=== PATIENT | male | born 1950 | race Caucasian/White ===

== ENCOUNTER 2023-02-15 18:53 | Emergency (ER) | payer MEDICARE, OTHER, SELFPAY ==
[2023-02-15 18:54] VITALS: BP 145/73; PULSE 76; RESP 16; TEMP 36.4; O2SAT 96; BMI 26.9
[2023-02-15 20:25] VITALS: RESP 18
[2023-02-15] MEDS: Diphth,Pertuss(Acell),Tet Vac 0.5 ML Vial IM (21:24)
[2023-02-15] MEDS: Lidocaine 1% (20 ml mdv) 20 ML Vial INFILT (21:26)
--- NOTE | 2023-02-15 21:56 | EDS_ITS ---
HPI History of Present Illness Chief Complaint: Laceration Detail of Chief Complaint: Laceration with webspace between the long and ring finger left hand Informant: patient Occured/Mechanism Mechanism/Context: Yes blunt trauma Onset/Context/Timing Onset: Today and Hours Context: Sudden Onset Timing: Continuous Quality of Pain: - (None) Location: Webspace between long and ring finger, left hand Current Severity: Mild Worsened by: Initial injury Relieved by: Pressure to control bleeding Associated Symptoms Associated Symptoms: Negative for Parasthesia, Weakness or Loss of Funtion Narrative Narrative: Patient is a 73-year-old [id number] gentleman who presents with laceration between the left long and ring finger. His tetanus will require update. He denies paresthesia, anesthesia motors. He is on no antithrombotic or anticoagulant. He has no other complaints. Tetanus Immunization: >10 years Prior similar symptoms: Yes Recent Illness/Hospitalization: No [facility] Medical History HTN (hypertension) Hypercholesteremia Allergy/AdvReac Type Severity Reaction Status Date / Time No Known Allergies Allergy Verified 02/15/23 18:54 Social History (Updated 02/15/23 @ 21:[address] Selvin Kaur MD) household members: spouse Smoking Status: Current every day smoker tobacco type: cigarettes ROS ROS ED Integumentary Reports other Details: Laceration described under the HPI narrative ; Denies Abrasions Neurologic Neurologic: Denies paresthesias or weakness Hematologic/Lymphatic Hematologic/Lymphatic: Denies easy bleeding or easy bruising EXAM Physical Exam Const Vital Signs: 02/15/23 18:54 02/15/23 20:25 Temperature 97.6 F L Temperature Source Temporal Pulse Rate 76 Respiratory Rate 16 18 Blood Pressure 145/73 H Blood Pressure Mean 97 Pulse Ox 96 Oxygen Delivery Method Room Air Positive well nourished and well developed General Appearance ED: well developed and NAD HEENT normocephalic and atraumatic Eyes PERRL and EOMs intact bilaterally Resp normal respiratory effort Cardio regular rate and regular rhythm Extremity full ROM; Negative for normal to inspection Extremity Narrative: Median, radial and ulnar function intact. 2 point discrimination normal. Capillary refill is normal. The extensor commonest tendon for the long and ring finger are intact. The flexor digitorum superficialis and flexor digitorum profundus are intact. There is a 2.8 cm laceration webspace between the left long and ring finger. Neuro oriented x3, CN's II-XII intact bilaterally, no focal motor deficits and no sensory deficits noted Sensorium / Orientation: alert Psych mental status grossly normal Skin Skin Narrative: Laceration previously described MDM MDM MDM Narrative Medical decision making narrative: Patient has wound due to metal object requiring repair. Procedures Other Procedures Procedure(s): 2.8 cm laceration webspace between the left long and ring finger. Tetanus was updated. The wound was anesthetized by local infiltration using 1% lidocaine without epinephrine. Wound was irrigated with 150 cc to 200 cc of normal saline. Using 5-0 Ethilon simple interrupted sutures were placed. A total of 7 was placed. Discharge Plan Triage Chief Complaint: Laceration ED Provider: Selvin Kaur Dx/Rx/DC Orders Clinical Impression: Laceration of hand, left Instructions: ED Laceration, Hand: All Closures Primary Care Provider: Ad Mccrary Referrals: Ad Mccrary MD [Primary Care Provider] - 10 Day for suture removal Activity Restrictions/Additional Instructions: 1. Keep wound clean and dry for the next 2 to 3 days 2. Clean wound with peroxide on a Q-tip 3 times a day then apply bacitracin ointment Disposition Disposition: Home, Self Care
[2023-02-15 22:23] VITALS: PULSE 68; RESP 18; O2SAT 98
--- OUTSIDE RECORDS SUMMARY | 2023-02-15 22:23 | XMS RPT_ITS | CCD ---
Author Name Unknown Address [address] [place] [address] Organization [facility] Care Team Providers Care Plush Finisher Name Role Phone DESMOND CASTELLANO Attending CHRISTOS Rothman Referring Unavailable CHRISTOS MCCRARY Primary Care Unavailable DESMOND CASTELLANO Attending CHRISTOS Rothman () Referring Unav ailable Christos Mccrary MD Primary Care Provider Christos Mccrary MD Primary Care Provider Christos Mccrary MD Primary Care Provider CHRISTOS MCCRARY Primary Care Unavailab le NATALIIA, JULIANA Referring Unavailable JULIANA WILLIAM Attending Unavailable CHRISTOS MCCRARY Primary Care Unavailab FAM Moreno Attending Unavailable GRAF JULIANA Referring Unavailable CHRISTOS MCCRARY Primary Care Unavailab ellen WILLIAM, JULIANA Attending Unavailable CHRISTOS MCCRARY Primary Care Unavailab CHRISTOS Orellana Referring Unavailab le CHRISTOS MCCRARY Attending Unavailab le HCRISTOS MCCRARY Primary Care Unavailab CHRISTOS Orellana Primary Care Unavailab BRIONNA Hopkins Referring Unavailable Medications Completed/Discontinued Medications Medication Drug Class(es) Dates Sig (Normalized) Sig (Original) acetaminophen 325 mg oral tablet (11 sources) take 2 tablets by mouth every six hours as needed acetaminophen (TYLENOL) 325 mg tablet Take 650 mg by mouth every 6 hours as needed. 0 Active Problems Active Problems Problem Classification Problem Date Documented Da te Episodic/Chronic Disorders of lipid metabolism (18 sources) Hyperlipidemia; Translations: [Hyperlipidemia, unspecified] Onset: 07-29-2010 07-29-2010 Chronic Essential hypertension (20 sources) Essential hypertension; Translations: [Essential (primary) hypertension] Onset: 10-14-2015 Chronic Genitourinary symptoms and ill-defined conditions (3 sources) Gross hematuria; Translations: [Gross hematuria] Onset: 02-27-2018 Episodic Hemorrhoids (11 sources) Hemorrhoids; Translations: [Unspecified hemorrhoids] 05-13-2005 Episodic Hyperplasia of prostate (3 sources) Benign prostatic hyperplasia with lower urinary tract symptoms; Translations: [Large prostate ] Onset: 02-27-2018 11-23-2022 Chronic Other and unspecified benign neoplasm (13 sources) History of polyp of colon; Translations: [Personal history of colonic polyps] 05-13-2005 Episodic Other and unspecified benign neoplasm (11 sources) Polyp of colon; Translations: [Polyp of colon] 08-22-2017 Episodic Other and unspecified benign neoplasm (1 source) Benign neoplasm of colon, unspecified; Translations: [Benign neoplasm of colon] 09-29-2022 Episodic Other and unspecified benign neoplasm (1 source) Tubular adenoma ; Translations: [Benign neoplasm, unspecified site] 09-29-2022 Episodic Other and unspecified benign neoplasm (1 source) Personal history of colonic polyps; Translations: [History of colonic polyps] Onset: 09-22-2022 Episodic Other diseases of kidney and ureters (1 source) Other obstructive and reflux uropathy; Translations: [Other obstructive and reflux uropathy] Onset: 02-27-2018 Episodic Other inflammatory condition of skin (11 sources) Psoriasis; Translations: [Psoriasis, unspecified] 01-25-2017 Chronic Other inflammatory condition of skin (1 source) Psoriasis, unspecified; Translations: [Psoriasis] Onset: 01-25-2017 Chronic Other screening for suspected conditions (not mental disorders or infectious disease) (6 sources) Patient encounter status; Translations: [Encounter for screening for malignant neoplasm of respiratory organs] Onset: 09-22-2022 Episodic Residual codes; unclassified (5 sources) Family history of cancer of colon; Translations: [Family history of malignant neoplasm of digestive organs] Onset: 09-22-2022 09-02-2022 Episodic Residual codes; unclassified (1 source) Family history of malignant neoplasm of digestive organs; Translations: [Family history of colon cancer] Onset: 09-22-2022 Episodic Spondylosis; intervertebral disc disorders; other back problems (20 sources) Spinal stenosis other than cervical; Translations: [Spinal stenosis, other than cervical] Onset: 10-14-2015 05-13-2005 Episodic Substance-related disorders (13 sources) Tobacco user; Translations: [Nicotine dependence, unspecified, uncomplicated] Onset: 10-14-2015 10-14-2015 Chronic Past or Other Problems Problem Classification Problem Date Documented Date Episodic/Chronic Abdominal hernia (11 sources) Inguinal hernia; Translations: [Unilateral inguinal hernia, without obstruction or gangrene, not specified as recurrent] Onset: 07-15-2009 07-15-2009 Episodic Nonmalignant breast conditions (11 sources) Hypertrophy of breast; Translations: [Hypertrophy of breast] Onset: 04-04-2007 04-04-2007 Episodic Residual codes; unclassified (5 sources) Family history of neoplasm; Translations: [Family history of other specified conditions] Onset: 11-02-2014 11-02-2014 Episodic Residual codes; unclassified (6 sources) FH: Gastrointestinal disease; Translations: [Family history of other specified conditions] Onset: 11-02-2014 11-02-2014 Episodic Results Test Name Value Interpretation Reference Range Facil ity Vital Signs Date Time Vital Sign Value Performing Clinician Yoshi lin 09-29-2022 09:19-0400 Body temperature 98.49 [degF] Julianayari Tracyf PA-C Work Phone: [facility] 09-29-2022 09:19-0400 Body weight 81.92 kg Juliana [place] PA-C Work Phone: [facility] 09-29-2022 09:19-0400 Diastolic blood pressure 78 mm[Hg] Juliana [place] PA-C Work Phone: [facility] 09-29-2022 09:19-0400 Heart rate 72 /min Juliana Nataliia PA-C Work Phone: [facility] 09-29-2022 09:19-0400 SaO2% (BldA) [Mass fraction] 97 % Juliana Nataliia PA-C Work Phone: [facility] 09-29-2022 09:19-0400 Systolic blood pressure 122 mm[Hg] Juliana [place] PA-C Work Phone: [facility] 09-22-2022 09:31-0400 Diastolic blood pressure 69 mm[Hg] Fam Garcia MD Work Phone: [facility] 09-22-2022 09:31-0400 Heart rate 61 /min Fam Garcia MD Work Phone: [facility] 09-22-2022 09:31-0400 Respiratory rate 16 /min Fam Garcia MD Work Phone: [facility] 09-22-2022 09:31-0400 SaO2% (BldA) [Mass fraction] 97 % Fam Garcia MD Work Phone: [facility] 09-22-2022 09:31-0400 Systolic blood pressure 108 mm[Hg] Fma Garcia MD Work Phone: [facility] 09-22-2022 07:42-0400 Body temperature 97.5 [degF] Fam Garcia MD Work Phone: [facility] 09-02-2022 09:21-0400 Body height 175.3 cm Juliana Nataliia PA-C Work Phone: [facility] 09-02-2022 09:21-0400 Body temperature 98.4 [degF] Juliana Nataliia PA-C Work Phone: [facility] 09-02-2022 09:21-0400 Body weight 83.01 kg Juliana Nataliia PA-C Work Phone: [facility] 09-02-2022 09:21-0400 Diastolic blood pressure 80 mm[Hg] Juliana Nataliia PA-C Work Phone: [facility] 09-02-2022 09:21-0400 Heart rate 75 /min Juliana [place] PA-C Work Phone: [facility] 09-02-2022 09:21-0400 SaO2% (BldA) [Mass fraction] 97 % Juliana Nataliia PA-C Work Phone: [facility] 09-02-2022 09:21-0400 Systolic blood pressure 136 mm[Hg] Juliana Nataliia PA-C Work Phone: [facility] 11-26-2021 09:23-0400 Body height 170.8 cm Brionna Podlogar SHEET COMBINING OPERATOR.CARDIAC EXERCISE SPECIALIST Work Phone: [facility] 11-26-2021 09:23-0400 Body weight 78.83 kg Brionna Podlogar SHEET COMBINING OPERATOR.CARDIAC EXERCISE SPECIALIST Work Phone: [facility] 11-26-2021 09:23-0400 Diastolic blood pressure 78 mm[Hg] Brionna Podlogar SHEET COMBINING OPERATOR.CARDIAC EXERCISE SPECIALIST Work Phone: [facility] 11-26-2021 09:23-0400 Heart rate 72 /min Brionna Podlogar SHEET COMBINING OPERATOR.CARDIAC EXERCISE SPECIALIST Work Phone: [facility] 11-26-2021 09:23-0400 Respiratory rate 16 /min Brionna Podlogar SHEET COMBINING OPERATOR.CARDIAC EXERCISE SPECIALIST Work Phone: [facility] 11-26-2021 09:23-0400 SaO2% (BldA) [Mass fraction] 97 % Brionna Podlogar SHEET COMBINING OPERATOR.CARDIAC EXERCISE SPECIALIST Work Phone: [facility] 11-26-2021 09:23-0400 Systolic blood pressure 124 mm[Hg] Brionna Podlogar SHEET COMBINING OPERATOR.CARDIAC EXERCISE SPECIALIST Work Phone: [facility] Encounters Encounter Date Encounter Type Care Provider Facility Start: 11-28-2022 End: 11-28-2022 ambulatory [facility] Facility:[facility] Start: 11-28-2022 End: 11-29-2022 ambulatory [facility] Facility:[facility] Start: 11-23-2022 Telephone encounter Brionna Podl ogar SHEET COMBINING OPERATOR.CARDIAC EXERCISE SPECIALIST Work Phone: [facility] Procedures Date Procedure Procedure Detail Performing Clinician Start: 11-23-2022 Lipid 1996 panel - S hilda or Plasma Fam Garcia MD Work Phone: Start: 09-22-2022 Level iv surg pathol ogy gross&microscopic exam Fam Garcia MD Work Phone: Start: 09-22-2022 Colonoscopy flx dx w/collj spec when pfrmd Juliana Nataliia PA-C Work Phone: Start: 09-22-2022 Colonoscopy Juliana raygoza PA-C Work Phone: Start: 11-23-2021 Lipid 1996 panel - S hilda or Plasma Brionna Porras SHEET COMBINING OPERATOR.CARDIAC EXERCISE SPECIALIST Work Phone: Start: 11-24-2020 Adult depression screening assessment Christos Mccrary MD Work Phone: Start: 08-22-2017 Colonoscopy Ad Mccrary MD Work Phone: Plan of Treatment Date Care Activity Detail Author Start: 11-24-2027 Lipid 1996 panel - S hilda or Plasma Lipid Screening [facility] Start: 09-23-[address] [facility] Start: 09-23-2027 COLORECTAL CANCER SCREENING COLORECTAL CANCER SCREENING [facility] Start: 11-23-2026 Lipid 1996 panel - S hilda or Plasma Lipid Screening [facility] Start: 11-23-2026 LIPID SCREEN LIPID SCREEN [facility] Start: 11-24-2025 LIPID SCREEN LIPID SCREEN [facility] Start: 11-23-2025 Diabetes Screening Diabetes Screenin g [facility] Start: 11-23-2024 DIABETES SCREEN DIABETES SCREEN [facility] Start: 11-23-2024 Diabetes Screening Diabetes Screenin g 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 Start: 11-29-2023 Covid-19 Vaccine ( season) Covid-19 Vacc[address] () [facility] Immunizations Immunization Date Immunization Notes Care Provider Fa cilirandy 06-02-2020 COVID-19 vaccine, fu ll dose (MODERNA) Christos Mccrary MD Work Phone: [facility] 05-05-2020 COVID-19 vaccine, fu ll dose (MODERNA) Christos Mccrary MD Work Phone: [facility] 02-02-2018 influenza virus vaccine, unspecified formulation Brionna Porras SHEET COMBINING OPERATOR.CARDIAC EXERCISE SPECIALIST Work Phone: [facility] 07-22-2016 pneumococcal polysaccharide vaccine, 23 valent Christos Mccrary MD Work Phone: [facility] 10-10-2014 pneumococcal conjuga te vaccine, 13 valent Christos Mccrary MD Work Phone: [facility] 09-13-2013 tetanus toxoid, redu manuel diphtheria toxoid, and acellular pertussis vaccine, adsorbed Christos Mccrary MD Work Phone: [facility] 05-25-2013 zoster vaccine, live Walter marielle Mccrary MD Work Phone: [facility] 03-06-2000 diphtheria and tetan us toxoids, adsorbed for pediatric use Christos Mccrary MD Work Phone: [facility] Work Phone: Payers Date Payer Category Payer Unknown HOSPITAL/MEDICAL GENERIC MEDICAL GENERIC [id number] 2019-Present [phone] [address] [address] [place] [address] Indemnity [id number] 2019 Unknown [id number] 2016 Medicare [id number] 2016 Medicare MEDICARE MEDICAR E A AND B [id number] 2016-Present [phone] [place] [address] Medicare [id number] 2016 Medicare MEDICARE MEDICAR E A AND B [id number] 2016-Present [phone] [place] [address] Medicare [id number] 2006 Unknown [id number] 1950 Unknown [id number] Medicare [id number] Social History Date Type Detail Facility Start: 02-02-2018 End: 11-26-2021 Tobacco smoking status NHIS Smokes tobacco daily [facility] History of tobacco use Cigarette Smoker [facility] Start: 02-02-2018 End: 09-02-2022 Cigarettes smoked current (pack per day) - Reported 1 [facility] Start: 02-02-2018 End: 11-26-2021 Tobacco use and exposure Former smokeless tobacco user [facility] Start: 12-03-2019 End: 09-22-2022 Alcohol intake Current non-drinker of alcohol (finding) [facility] Start: 12-03-2019 History SDOH Alcohol Frequency 1 [facility] Start: 12-03-2019 History SDOH Alcohol Std Drinks 98 [facility] Start: 05-26-2009 History SDOH Alcohol Comment none since 2008 [facility] Start: 12-03-2019 History SDOH Social Connections Phone 3 [facility] Start: 12-03-2019 History SDOH Social Connections Get Together 2 [facility] Start: 12-03-2019 History SDOH Financial 5 [facility] Start: 12-03-[address] [facility] Start: 1950 Sex Assigned At Not on file [facility] Start: 07-19-2021 End: 07-29-2021 Exposure to SARS-CoV-2 (event) Not sure [facility] Work Phone: Start: 12-03-2019 End: 09-02-2022 Social connection and isolation panel [facility] Do you belong to any clubs or organizations such as uatsdin groups, unions, fraternal or athletic groups, or school groups? Yes [facility] Are you now , , , , never or living with a partner? [facility] How often to you hav e a drink containing alcohol? Never [facility] How many standard dr inks containing alcohol do you have on a typical day? Patient refused [facility] Do you feel stress - tense, restless, nervous, or anxious, or unable to sleep at night because your mind is troubled all the time - these days [OSQ] Not at all [facility] The food that (I/we) bought just didn't last, and (I/we) didn't have money to get more. Never true [facility] In the past 12 month s, was there a time when you were not able to pay the mortgage or rent on time? No [facility] Are you now , , , , never or living with a partner? Refused [facility] (I/We) worried wheth er (my/our) food would run out before (I/we) got money to buy more. DK or Refused [facility] Clinical Notes 07-29-2010 to 11-28-2022 Telephone Encounter - Ashli Reddy RN - 11/23/2022 9:06 AM EDTTelephone Encounter - Brionna Porras APRN.CNP - 11/23/2022 9:01 AM EDTPatient Instructions Note Date & Type Note Facility 11-28-2022 Note HNO ID: [id number] Author: Christos Mccrary MD Service: ? Author Type: Physician Type: Progress Notes Filed: 11/28/2022 9:30 PM Note Text: Chief Complaint Patient presents with: Follow Up: Yearly check up HPI Perez Amaro is a 72 year old male who presents here today for Above Complaints. HTN: Mr. Amaro indicates that he is feeling well and denies any symptoms referable to elevated blood pressure. Specifically denies headache, chest pain, palpitations, dyspnea, and peripheral edema. Patient denies any side effects of his medication(s) and is compliant with their regimen. He does check BP's away from this office with average BP's in the 120/80's range. Perez likes to exercise by walking. He watches his diet for sodium, low fat and low cholesterol most of the time. Last 3 Encounter BP Readings: Date: BP: 11/28/2022 122/80 09/29/2022 122/78 09/22/2022 108/69 BPH: Getting up 3-4 times per night and has weak stream. Denies dysuria, hematuria, straining. Refusing rx. Psoriasis: managed by Dr. Watts's office. Has topical cream he uses PRN for flares. Usually has rash on knee. Has to use about once every couple of months. PHQ-2 / Depression screen He in the past two weeks denies having felt down, depressed, hopeless or with little interest or pleasure in doing things. Smoking 3/4 pack per day. Has smoked 50 years at about 1 pack per day. Has used chantix in the past which worked well for him. Has living will and DPOA at home. FULL CODE. Past medical history, appointments, medications, allergies reviewed. Previous Medical History PAST MEDICAL HISTORY Diagnosis Date Arthritis Colon polyps Diverticulosis Enlarged prostate Hyperlipidemia Hypertension Personal history of colonic polyps Colon polyps Psoriasis Dr. Watts Snoring Spinal stenosis, other than cervical Torn rotator cuff left, seeing Dr. Morris Unspecified hemorrhoids without mention of complication Hemorrhoids Previous Surgical History PAST SURGICAL HISTORY Procedure Laterality Date BACK SURGERY HX COLONOSCOPY FLX DX W/COLLJ SPEC WHEN PFRMD 01/30/2002 Colonoscopy COLONOSCOPY FLX DX W/COLLJ SPEC WHEN PFRMD 03/23/2012 normal colonoscopy - prior polyp - 5 years COLONOSCOPY FLX DX W/COLLJ SPEC WHEN PFRMD 08/22/2017 hyperplastic polyps, repeat in 5 years d/t family history COLONOSCOPY FLX DX W/COLLJ SPEC WHEN PFRMD 09/2022 REPEAT 5 YRS HERNIA REPAIR HX PAST SURGICAL HISTORY OF 10/05/2007 right great toe surgery- arthritis PT ED ORTHOPAEDICS Right rotator cuff repair RECONSTRUCTION ROTATOR CUFF AVULSION CHRONIC right RPR 1ST INGUN HRNA AGE 6 YRS/> REDUCIBLE 1975 Hernia repair, inguinal RPR 1ST INGUN HRNA AGE 6 YRS/> REDUCIBLE 08/14/2009 Left Family History FAMILY HISTORY Problem Relation Age of Onset Diabetes Father Hypertension Father Hypertension Mother Lipids Mother Colon Cancer Mother other (anemia) Sister Patient Allergies ALLERGIES No Known Allergies Current Medications Current Outpatient Medications on File Prior to Visit Medication Sig acetaminophen (TYLENOL) 325 mg tablet Take 650 mg by mouth every 6 hours as needed. amLODIPine-benazepril (LOTREL) 5-20 mg per capsule Take 1 capsule by mouth once daily. atorvastatin (LIPITOR) 10 mg tablet Take 1 tablet by mouth once daily. For cholesterol. metoprolol succinate ER (TOPROL XL) 100 mg TAKE 1 TABLET BY MOUTH EVERY DAY multivitamin (VITAMIN DAILY ORAL) Take 1 tablet by mouth once daily. triamcinolone acetonide (KENALOG) 0.1 % cream Apply 1 application to affected area twice daily. Apply sparingly to area for rash/itching. turmeric 400 mg cap Take by mouth. No current facility-administered medications on file prior to visit. Social History Social History Tobacco Use Smoking status: Every Day Packs/day: 1.00 Years: 30.00 Additional pack years: 0.00 Total pack years: 30.00 Types: Cigarettes Smokeless tobacco: Former Vaping Use Vaping Use: Never used Substance Use Topics Alcohol use: No Comment: none since 2008 Drug use: No Review of Symptoms REVIEW OF SYSTEMS GENERAL: No weight loss, malaise or fevers HEENT: Negative for frequent or significant headaches, No changes in hearing or vision, no nose bleeds or other nasal problems NECK: Negative for lumps, goiter, pain and significant neck swelling RESPIRATORY: Negative for cough, hemoptysis, wheezing, COPD, dyspnea or shortness of breath CARDIOVASCULAR: Negative for chest pain, leg swelling, hypertension, CHF or palpitations GI: No nausea, vomiting, or diarrhea : See HPI MUSCULOSKELETAL: Negative for joint pain or swelling, back pain or muscle pain SKIN: Negative for lesions, rash, and itching PSYCH: Negative for sleep disturbance, mood disorder and recent psychosocial stressors HEMATOLOGY/LYMPHOLOGY: Negative for prolonged bleeding, bruising easily or swollen nodes ENDOCR (more content not included)... [facility] 11-23-2022 Miscellaneous Notes Formattin g of this note might be different from the original. Call placed to patient and notified. Patient verbalizes understanding and will be in this morning as he is already fasting. Prefers to walk in rather than schedule appointment. Ashli Reddy RN Order for labs filed. Please let patient know he should fast 8 hours prior. ThanksBrionna APRN.HONEY Patient calls to request his usual labs be placed prior to his yearly physical on Monday11/28/2022. No current orders. Pended what he normally has completed with previous diagnosis. Ashli Reddy RN documented in this encounter [facility] 09-29-2022 Note HNO ID: [id number] Author: Juliana William PA-C Service: ? Author Type: Physician Weatherization Director Type: Progress Notes Filed: 10/10/2022 5:57 AM Note Text: FOLLOW UP VISIT - ENDOSCOPY NAME: Perez Bhatti [facility] [place] NO.: [id number] DATE OF SERVICE: 09/29/2022 : 1950 REFERRING PHYSICIAN: Christos Mccrary MD Perez is a patient I am following for history of colon polyps and family history of colon cancer, and need for surveillance colonoscopy. Dr. Garcia performed lower endoscopy on 09/22/22. Findings per operative report showed: - Two small polyps in the transverse colon and in the ascending colon, removed with a jumbo cold forceps. Resected and retrieved. - Non-bleeding internal hemorrhoids. - Diverticulosis in the sigmoid colon. - The examination was otherwise normal. Pathology demonstrated: FINAL DIAGNOSIS A. Colon, ascending, polyp, biopsy: - Tubular adenoma. B. Colon, transverse, polyp, biopsy: - Sessile serrated polyp with focal mucosal perineurioma-type stromal changes. The patient notes no complaints since the procedure. VITALS: Blood pressure 122/78, pulse 72, temperature 36.9 ?C (98.5 ?F), weight 81.9 kg (180 lb 9.6 oz), SpO2 97 %. General: patient is alert, cooperative, pleasant and in no acute distress On examination, the abdomen is benign. Assessment IMPRESSION: s/p colonoscopy with polypectomy, tubular adenoma and sessile serrated polyp PLAN: The operative findings and pathology report were reviewed with the patient, and the patient has had the opportunity to ask questions and have questions answered. If the patient notes any problems or changes in bowel function, the patient should contact me immediately. Otherwise I recommend follow up endoscopy in 5 years Patient verbalized understanding of all above and agreed with the plan Diagnoses: (D12.6) Sessile serrated polyp of colon (primary encounter diagnosis) (D36.9) Tubular adenoma I spent a total of 23 minutes on the date of the service which included preparing to see the patient, [id number] patient care, completing clinical documentation, obtaining and/or reviewing separately obtained history, counseling and educating the patient/family/caregiver, independently interpreting results (not separately reported), and communicating results to the patient/family/caregiver. Juliana William PA-C [facility] 09-29-2022 Instructions Juliana William PA-C - 09/29/2022 9:37 AM EDT The following instructions are important for you related to your office visit today with the [facility] General Surgeons. INSTRUCTIONS FOLLOWING A POLYP FOUND AT COLONOSCOPY You were found to have a adenomatous and sessile serrated colon polyps. I recommend you undergo repeat endoscopy in 5 years. If you note bleeding, change in bowel habits, or other suspicious colon related symptoms before that time, those symptoms should be evaluated as necessary. If you have any difficulties or concerns, you should contact our office immediately. If you note any additional difficulties, questions, or concerns, you should contact our office immediately @ [phone] and ask to be transferred to the General Surgery department. documented in this encounter [facility] 09-29-2022 History of Presen t illness Narrative FOLLOW UP VISIT - ENDOSCOPY NAME: Perez Bhatti [facility] [place] NO.: [id number] DATE OF SERVICE: 09/29/2022 : 1950 REFERRING PHYSICIAN: Christos Mccrary MD Perez is a patient I am following for history of colon polyps and family history of colon cancer, and need for surveillance colonoscopy. Dr. Garcia performed lower endoscopy on 09/22/22. Findings per operative report showed: - Two small polyps in the transverse colon and in the ascending colon, removed with a jumbo cold forceps. Resected and retrieved. - Non-bleeding internal hemorrhoids. - Diverticulosis in the sigmoid colon. - The examination was otherwise normal. Pathology demonstrated: FINAL DIAGNOSIS A. Colon, ascending, polyp, biopsy: - Tubular adenoma. B. Colon, transverse, polyp, biopsy: - Sessile serrated polyp with focal mucosal perineurioma-type stromal changes. The patient notes no complaints since the procedure. VITALS: Blood pressure 122/78, pulse 72, temperature 36.9 C (98.5 F), weight 81.9 kg (180 lb 9.6 oz), SpO2 97 %. General: patient is alert, cooperative, pleasant and in no acute distress On examination, the abdomen is benign. Assessment IMPRESSION: s/p colonoscopy with polypectomy, tubular adenoma and sessile serrated polyp PLAN: The operative findings and pathology report were reviewed with the patient, and the patient has had the opportunity to ask questions and have questions answered. If the patient notes any problems or changes in bowel function, the patient should contact me immediately. Otherwise I recommend follow up endoscopy in 5 years Patient verbalized understanding of all above and agreed with the plan Diagnoses: (D12.6) Sessile serrated polyp of colon (primary encounter diagnosis) (D36.9) Tubular adenoma I spent a total of 23 minutes on the date of the service which included preparing to see the patient, [id number] patient care, completing clinical documentation, obtaining and/or reviewing separately obtained history, counseling and educating the patient/family/caregiver, independently interpreting results (not separately reported), and communicating results to the patient/family/caregiver. Juliana William PA-C documented in this encounter [facility] 09-22-2022 Nurse Note Patient received in phase II via cart left lateral position, eyes closed but open to verbal stimuli, skin warm and dry, respirations regular and unlabored, abdomen soft and non distended, reports abdomen hurts 'a little', a 2 or 3 on pain scale, encouraged to pass air rectally as able. documented in this encounter [facility] 09-22-2022 History and physical note Images from the original note were not included. HISTORY AND PHYSICAL Perez Amaro 1950 REFERRING PHYSICIAN: No ref. provider found CHIEF COMPLAINT: Consult (colonoscopy) HPI: The patient is a 72 year old male referred for endoscopy. Perez notes no colon complaints. Patient denies any change in bowel habits, weight changes, blood in stools, black tarry stools or abdominal pain. NOTES family history of colon cancer in a first-degree relative. The patient notes no upper GI complaints. Perez has undergone prior endoscopy. Last colonoscopy 08/22/[address] Caro under conscious sedation with removal of benign polyps, 5 year repeat recommended based on family history. Patient denies chest pain, shortness of breath or recent hospitalizations. Denies problems with sedation in the past. PAST MEDICAL HISTORY PAST MEDICAL HISTORY Diagnosis Date Colon polyps Diverticulosis Enlarged prostate Hyperlipidemia Hypertension Personal history of colonic polyps Colon polyps Psoriasis Dr. Watts Snoring Spinal stenosis, other than cervical Torn rotator cuff left, seeing Dr. Morris Unspecified hemorrhoids without mention of complication Hemorrhoids PAST SURGICAL HISTORY PAST SURGICAL HISTORY Procedure Laterality Date COLONOSCOPY FLX DX W/COLLJ SPEC WHEN PFRMD 01/30/2002 Colonoscopy COLONOSCOPY FLX DX W/COLLJ SPEC WHEN PFRMD 03/23/2012 normal colonoscopy - prior polyp - 5 years COLONOSCOPY FLX DX W/COLLJ SPEC WHEN PFRMD 08/22/2017 hyperplastic polyps, repeat in 5 years d/t family history PAST SURGICAL HISTORY OF 10/05/2007 right great toe surgery- arthritis PT ED ORTHOPAEDICS Right rotator cuff repair RECONSTRUCTION ROTATOR CUFF AVULSION CHRONIC right RPR 1ST INGUN HRNA AGE 5 YRS/> REDUCIBLE 1975 Hernia repair, inguinal RPR 1ST INGUN HRNA AGE 5 YRS/> REDUCIBLE 08/14/2009 Left CURRENT MEDICATIONS Current Outpatient Medications Medication Sig amLODIPine-benazepril (LOTREL) 5-20 mg per capsule Take 1 capsule by mouth once daily. atorvastatin (LIPITOR) 10 mg tablet Take 1 tablet by mouth once daily. For cholesterol. metoprolol succinate ER (TOPROL XL) 100 mg TAKE 1 TABLET BY MOUTH EVERY DAY multivitamin (VITAMIN DAILY ORAL) Take 1 tablet by mouth once daily. triamcinolone acetonide (KENALOG) 0.1 % cream Apply 1 application to affected area twice daily. Apply sparingly to area for rash/itching. acetaminophen (TYLENOL) 325 mg tablet Take 650 mg by mouth every 6 hours as needed. No current facility-administered medications for this visit. ALLERGIES: Patient has no known allergies. PERSONAL HISTORY: SOCIAL HISTORY Social History Tobacco Use Smoking status: Every Day Packs/day: 1.00 Years: 30.00 Total pack years: 30.00 Types: Cigarettes Smokeless tobacco: Former Vaping Use Vaping Use: Never used Substance Use Topics Alcohol use: No Comment: none since 2008 Drug use: No FAMILY HISTORY: FAMILY HISTORY FAMILY HISTORY Problem Relation Age of Onset Diabetes Father Hypertension Father Hypertension Mother Lipids Mother Colon Cancer Mother other (anemia) Sister REVIEW OF SYMPTOMS: The review of systems data was entered by the nurse and reviewed by me Nursing Notes: Rosario Ballard LPN 09/02/2022 9:26 AM Signed REVIEW OF SYSTEMS: General: The patient denies fatigue, denies weight loss, denies weight gain, denies feeling hot, and denies feelings of cold. Eyes: The patient denies glaucoma, denies eye injury/surgery, wears glasses or contacts. Ear/Nose/Throat: The patient denies allergies, denies hayfever, denies ear infections, and denies bloody noses. Cardiovascular: The patient denies chest pain, denies heart disease, NOTES high blood pressure,denies cardiac stent, denies prior heart attack, denies irregular heart beat, NOTES high cholesterol, denies poor circulation, denies heart failure, other cardiac issues, denies claudication, denies cold feet, denies peripheral arterial stent. Respiratory: The patient denies tuberculosis, denies pneumonia, denies frequent cough, denies pulmonary embolism, denies shortness of breath, and denies coughing up blood. Gastrointestinal: The patient denies difficulty swallowing, denies acid reflux, denies ulcers, denies vomiting, denies jaundice/hepatitis, denies gallbladder problems, denies black or tarry stools, denies hemorrhoids, denies bleeding from rectum, denies diverticulitis, denies constipation, denies diarrhea, denies loss of stool control, and denies hernias. Kidney/Bladder: The patient denies kidney stones, denies urine infections, and denies bloody urine. Skin: The patient denies a history of skin cancer, denies bleeding/changing moles, and denies a history of skin rash. Neurologic: The patient denies a history of epilepsy/convulsions, denies headaches, denies head/spinal injuries, and denies stroke/TIA. Psychiatric: The patient denies psychiatric medications, denies depression, and denies voices, denies substance abuse. Endocrine: The patient denies thyroid disorders, denies diabetes, and denies hormonal problems. Hematologic: The patient denies a history of bruising, denies bleeding, and denies anemia, denies blood clots. Infections: The patient denies a history of measles and mumps, denies rheumatic fever, and denies sexually transmitted diseases. Musculoskeletal: The patient denies back pain/injury, denies back problems, denies sciatica, denies knee/foot trouble, denies arthritis, or denies gout. When was patient's last Mammogram screening? N/A Last Colonoscopy: 08/2017 Rosario Ballard LPN I have confirmed and edited as necessary, the PFSH and ROS obtained by others. Juliana William PA-C PHYSICAL EXAMINATION: General: The patient is 72 year old male, well nourished, well hydrated in no acute distress. The patient is oriented to time, place, and person. VITALS: Blood pressure 136/80, pulse 75, temperature 36.9 C (98.4 F), height 175.3 cm (5' 9 ), weight 83 kg (183 lb), SpO2 97 %. Body mass index is 27.02 kg/m . HEENT: Normal cephalic, ataumatic, pupils are equally round, sclera are anicteric, mucous membranes are moist, oropharynx is clear. Neck has no masses, asymmetry or lymphadenopathy. Respiratory: Clear to auscultation and percussion. Normal respiratory excursion and pattern. Cardiac: Examination is regular rate and rhythm. Normal S1/S2 Abdominal exam: Soft, nontender, with no palpable masses. No hepatosplenomegaly. No palpable hernias. Extremities: no clubbing, cyanosis or edema. No adenopathy. LABORATORY VALUES: As Noted RADIOLOGIC STUDIES: As Noted Assessment IMPRESSION: encounter for high-risk surveillance colonoscopy-personal history of colon polyps and family history of colon cancer PLAN: I have reviewed my findings with the surgeon. Will plan for lower endoscopy. We discussed the risks and benefits of the planned endoscopy. I have informed the patient that complications can occur including failure to complete the endoscopy and perforation. The patient had the opportunity to ask questions concerning the planned endoscopy. My staff has also explained the procedure to the patient in understandable terms and has given the patient printed material concerning the procedure. The patient freely consents to surgery. I plan to use Miralax bowel preparation I have explained to the patient the difference between IV conscious sedation and MAC anesthesia - and I have offered either, according to the patient's wishes. I have explained that with IV conscious sedation there is no anesthesia provider available and therefore there is a limitation of the amount of IV medications that can be given and that the patient may wake up in the middle of the procedure and/or experience pain/discomfort during the procedure. Further discussion was done and the patient was given the opportunity to ask questions and all questions were answered. The patient chooses IV conscious sedation Diagnoses: (Z12.11) Encounter for screening for malignant neoplasm of colon (primary encounter diagnosis) (Z86.010) History of colonic polyps I spent a total of 33 minutes on the date of the service which included preparing to see the patient, [id number] patient care, completing clinical documentation, obtaining and/or reviewing separately obtained history, performing a medically appropriate examination, counseling and educating the patient/family/caregiver, ordering medications, tests, or procedures, and care coordination (not separately reported). Juliana William PA-C UPDATED HISTORY AND PHYSICAL EXAMINATION SERVICE DATE: 09/22/2022 SERVICE TIME: 8:41 AM PHYSICAL EXAM MUST BE COMPLETED ON ADMISSION The History and Physical (completed in the past 30 days) has been reviewed and the patient has been examined. The contents accurately reflect the patient's condition with the following additions or revisions since the H&P was completed. Examination indicates no changes. This H&P can be found in the attached. SIGNATURE: Fam Garcia III, MD PATIENT NAME: Perez Amaro DATE: September 22, 2022 TIME: 8:41 AM documented in this encounter [facility] 09-02-2022 Note HNO ID: [id number] Author: Juliana William PA-C Service: ? Author Type: Physician Weatherization Director Type: Progress Notes Filed: 09/12/2022 7:58 AM Note Text: HISTORY AND PHYSICAL Perez Amaro 1950 REFERRING PHYSICIAN: No ref. provider found CHIEF COMPLAINT: Consult (colonoscopy) HPI: The patient is a 72 year old male referred for endoscopy. Perez notes no colon complaints. Patient denies any change in bowel habits, weight changes, blood in stools, black tarry stools or abdominal pain. NOTES family history of colon cancer in a first-degree relative. The patient notes no upper GI complaints. Perez has undergone prior endoscopy. Last colonoscopy 08/22/[address] Caro under conscious sedation with removal of benign polyps, 5 year repeat recommended based on family history. Patient denies chest pain, shortness of breath or recent hospitalizations. Denies problems with sedation in the past. PAST MEDICAL HISTORY Diagnosis Date Colon polyps Diverticulosis Enlarged prostate Hyperlipidemia Hypertension Personal history of colonic polyps Colon polyps Psoriasis Dr. Watts Snoring Spinal stenosis, other than cervical Torn rotator cuff left, seeing Dr. Morris Unspecified hemorrhoids without mention of complication Hemorrhoids PAST SURGICAL HISTORY Procedure Laterality Date COLONOSCOPY FLX DX W/COLLJ SPEC WHEN PFRMD 01/30/2002 Colonoscopy COLONOSCOPY FLX DX W/COLLJ SPEC WHEN PFRMD 03/23/2012 normal colonoscopy - prior polyp - 5 years COLONOSCOPY FLX DX W/COLLJ SPEC WHEN PFRMD 08/22/2017 hyperplastic polyps, repeat in 5 years d/t family history PAST SURGICAL HISTORY OF 10/05/2007 right great toe surgery- arthritis PT ED ORTHOPAEDICS Right rotator cuff repair RECONSTRUCTION ROTATOR CUFF AVULSION CHRONIC right RPR 1ST INGUN HRNA AGE 6 YRS/> REDUCIBLE 1975 Hernia repair, inguinal RPR 1ST INGUN HRNA AGE 5 YRS/> REDUCIBLE 08/14/2009 Left Current Outpatient Medications Medication Sig amLODIPine-benazepril (LOTREL) 5-20 mg per capsule Take 1 capsule by mouth once daily. atorvastatin (LIPITOR) 10 mg tablet Take 1 tablet by mouth once daily. For cholesterol. metoprolol succinate ER (TOPROL XL) 100 mg TAKE 1 TABLET BY MOUTH EVERY DAY multivitamin (VITAMIN DAILY ORAL) Take 1 tablet by mouth once daily. triamcinolone acetonide (KENALOG) 0.1 % cream Apply 1 application to affected area twice daily. Apply sparingly to area for rash/itching. acetaminophen (TYLENOL) 325 mg tablet Take 650 mg by mouth every 6 hours as needed. No current facility-administered medications for this visit. ALLERGIES: Patient has no known allergies. PERSONAL HISTORY: Social History Tobacco Use Smoking status: Every Day Packs/day: 1.00 Years: 30.00 Total pack years: 30.00 Types: Cigarettes Smokeless tobacco: Former Vaping Use Vaping Use: Never used Substance Use Topics Alcohol use: No Comment: none since 2008 Drug use: No FAMILY HISTORY: FAMILY HISTORY Problem Relation Age of Onset Diabetes Father Hypertension Father Hypertension Mother Lipids Mother Colon Cancer Mother other (anemia) Sister REVIEW OF SYMPTOMS: The review of systems data was entered by the nurse and reviewed by me Nursing Notes: Rosario Ballard LPN 09/02/2022 9:26 AM Signed REVIEW OF SYSTEMS: General: The patient denies fatigue, denies weight loss, denies weight gain, denies feeling hot, and denies feelings of cold. Eyes: The patient denies glaucoma, denies eye injury/surgery, wears glasses or contacts. Ear/Nose/Throat: The patient denies allergies, denies hayfever, denies ear infections, and denies bloody noses. Cardiovascular: The patient denies chest pain, denies heart disease, NOTES high blood pressure,denies cardiac stent, denies prior heart attack, denies irregular heart beat, NOTES high cholesterol, denies poor circulation, denies heart failure, other cardiac issues, denies claudication, denies cold feet, denies peripheral arterial stent. Respiratory: The patient denies tuberculosis, denies pneumonia, denies frequent cough, denies pulmonary embolism, denies shortness of breath, and denies coughing up blood. Gastrointestinal: The patient denies difficulty swallowing, denies acid reflux, denies ulcers, denies vomiting, denies jaundice/hepatitis, denies gallbladder problems, denies black or tarry stools, denies hemorrhoids, denies bleeding from rectum, denies diverticulitis, denies constipation, denies diarrhea, denies loss of stool control, and denies hernias. Kidney/Bladder: The patient denies kidney stones, denies urine infections, and denies bloody urine. Skin: The patient denies a history of skin cancer, denies bleeding/changing moles, and denies a history of skin rash. Neurologic: The patient denies a history of epilepsy/convulsions, denies headaches, denies head/spinal injuries, and denies stroke/TIA. Psychiatric: The patient denie (more content not included)... [facility] 09-02-2022 History of Presen t illness Narrative HISTORY AND PHYSICAL Perez Amaro 1950 REFERRING PHYSICIAN: No ref. provider found CHIEF COMPLAINT: Consult (colonoscopy) HPI: The patient is a 72 year old male referred for endoscopy. Perez notes no colon complaints. Patient denies any change in bowel habits, weight changes, blood in stools, black tarry stools or abdominal pain. NOTES family history of colon cancer in a first-degree relative. The patient notes no upper GI complaints. Perez has undergone prior endoscopy. Last colonoscopy 08/22/[address] Caro under conscious sedation with removal of benign polyps, 5 year repeat recommended based on family history. Patient denies chest pain, shortness of breath or recent hospitalizations. Denies problems with sedation in the past. PAST MEDICAL HISTORY Diagnosis Date Colon polyps Diverticulosis Enlarged prostate Hyperlipidemia Hypertension Personal history of colonic polyps Colon polyps Psoriasis Dr. Watts Snoring Spinal stenosis, other than cervical Torn rotator cuff left, seeing Dr. Morris Unspecified hemorrhoids without mention of complication Hemorrhoids PAST SURGICAL HISTORY Procedure Laterality Date COLONOSCOPY FLX DX W/COLLJ SPEC WHEN PFRMD 01/30/2002 Colonoscopy COLONOSCOPY FLX DX W/COLLJ SPEC WHEN PFRMD 03/23/2012 normal colonoscopy - prior polyp - 5 years COLONOSCOPY FLX DX W/COLLJ SPEC WHEN PFRMD 08/22/2017 hyperplastic polyps, repeat in 5 years d/t family history PAST SURGICAL HISTORY OF 10/05/2007 right great toe surgery- arthritis PT ED ORTHOPAEDICS Right rotator cuff repair RECONSTRUCTION ROTATOR CUFF AVULSION CHRONIC right RPR 1ST INGUN HRNA AGE 6 YRS/> REDUCIBLE 1975 Hernia repair, inguinal RPR 1ST INGUN HRNA AGE 5 YRS/> REDUCIBLE 08/14/2009 Left Current Outpatient Medications Medication Sig amLODIPine-benazepril (LOTREL) 5-20 mg per capsule Take 1 capsule by mouth once daily. atorvastatin (LIPITOR) 10 mg tablet Take 1 tablet by mouth once daily. For cholesterol. metoprolol succinate ER (TOPROL XL) 100 mg TAKE 1 TABLET BY MOUTH EVERY DAY multivitamin (VITAMIN DAILY ORAL) Take 1 tablet by mouth once daily. triamcinolone acetonide (KENALOG) 0.1 % cream Apply 1 application to affected area twice daily. Apply sparingly to area for rash/itching. acetaminophen (TYLENOL) 325 mg tablet Take 650 mg by mouth every 6 hours as needed. No current facility-administered medications for this visit. ALLERGIES: Patient has no known allergies. PERSONAL HISTORY: Social History Tobacco Use Smoking status: Every Day Packs/day: 1.00 Years: 30.00 Total pack years: 30.00 Types: Cigarettes Smokeless tobacco: Former Vaping Use Vaping Use: Never used Substance Use Topics Alcohol use: No Comment: none since 2008 Drug use: No FAMILY HISTORY: FAMILY HISTORY Problem Relation Age of Onset Diabetes Father Hypertension Father Hypertension Mother Lipids Mother Colon Cancer Mother other (anemia) Sister REVIEW OF SYMPTOMS: The review of systems data was entered by the nurse and reviewed by me Nursing Notes: Rosario Ballard LPN 09/02/2022 9:26 AM Signed REVIEW OF SYSTEMS: General: The patient denies fatigue, denies weight loss, denies weight gain, denies feeling hot, and denies feelings of cold. Eyes: The patient denies glaucoma, denies eye injury/surgery, wears glasses or contacts. Ear/Nose/Throat: The patient denies allergies, denies hayfever, denies ear infections, and denies bloody noses. Cardiovascular: The patient denies chest pain, denies heart disease, NOTES high blood pressure,denies cardiac stent, denies prior heart attack, denies irregular heart beat, NOTES high cholesterol, denies poor circulation, denies heart failure, other cardiac issues, denies claudication, denies cold feet, denies peripheral arterial stent. Respiratory: The patient denies tuberculosis, denies pneumonia, denies frequent cough, denies pulmonary embolism, denies shortness of breath, and denies coughing up blood. Gastrointestinal: The patient denies difficulty swallowing, denies acid reflux, denies ulcers, denies vomiting, denies jaundice/hepatitis, denies gallbladder problems, denies black or tarry stools, denies hemorrhoids, denies bleeding from rectum, denies diverticulitis, denies constipation, denies diarrhea, denies loss of stool control, and denies hernias. Kidney/Bladder: The patient denies kidney stones, denies urine infections, and denies bloody urine. Skin: The patient denies a history of skin cancer, denies bleeding/changing moles, and denies a history of skin rash. Neurologic: The patient denies a history of epilepsy/convulsions, denies headaches, denies head/spinal injuries, and denies stroke/TIA. Psychiatric: The patient denies psychiatric medications, denies depression, and denies voices, denies substance abuse. Endocrine: The patient denies thyroid disorders, denies diabetes, and denies hormonal problems. Hematologic: The patient denies a history of bruising, denies bleeding, and denies anemia, denies blood clots. Infections: The patient denies a history of measles and mumps, denies rheumatic fever, and denies sexually transmitted diseases. Musculoskeletal: The patient denies back pain/injury, denies back problems, denies sciatica, denies knee/foot trouble, denies arthritis, or denies gout. When was patient's last Mammogram screening? N/A Last Colonoscopy: 08/2017 Rosario Ballard LPN I have confirmed and edited as necessary, the PFSH and ROS obtained by others. Juliana William PA-C PHYSICAL EXAMINATION: General: The patient is 72 year old male, well nourished, well hydrated in no acute distress. The patient is oriented to time, place, and person. VITALS: Blood pressure 136/80, pulse 75, temperature 36.9 C (98.4 F), height 175.3 cm (5' 9 ), weight 83 kg (183 lb), SpO2 97 %. Body mass index is 27.02 kg/m . HEENT: Normal cephalic, ataumatic, pupils are equally round, sclera are anicteric, mucous membranes are moist, oropharynx is clear. Neck has no masses, asymmetry or lymphadenopathy. Respiratory: Clear to auscultation and percussion. Normal respiratory excursion and pattern. Cardiac: Examination is regular rate and rhythm. Normal S1/S2 Abdominal exam: Soft, nontender, with no palpable masses. No hepatosplenomegaly. No palpable hernias. Extremities: no clubbing, cyanosis or edema. No adenopathy. LABORATORY VALUES: As Noted RADIOLOGIC STUDIES: As Noted Assessment IMPRESSION: encounter for high-risk surveillance colonoscopy-personal history of colon polyps and family history of colon cancer PLAN: I have reviewed my findings with the surgeon. Will plan for lower endoscopy. We discussed the risks and benefits of the planned endoscopy. I have informed the patient that complications can occur including failure to complete the endoscopy and perforation. The patient had the opportunity to ask questions concerning the planned endoscopy. My staff has also explained the procedure to the patient in understandable terms and has given the patient printed material concerning the procedure. The patient freely consents to surgery. I plan to use Miralax bowel preparation I have explained to the patient the difference between IV conscious sedation and MAC anesthesia - and I have offered either, according to the patient's wishes. I have explained that with IV conscious sedation there is no anesthesia provider available and therefore there is a limitation of the amount of IV medications that can be given and that the patient may wake up in the middle of the procedure and/or experience pain/discomfort during the procedure. Further discussion was done and the patient was given the opportunity to ask questions and all questions were answered. The patient chooses IV conscious sedation Diagnoses: (Z12.11) Encounter for screening for malignant neoplasm of colon (primary encounter diagnosis) (Z86.010) History of colonic polyps I spent a total of 33 minutes on the date of the service which included preparing to see the patient, [id number] patient care, completing clinical documentation, obtaining and/or reviewing separately obtained history, performing a medically appropriate examination, counseling and educating the patient/family/caregiver, ordering medications, tests, or procedures, and care coordination (not separately reported). Juliana William PA-C documented in this encounter [facility] 09-02-2022 Nurse Note REVIEW OF SYSTEMS: General: The patient denies fatigue, denies weight loss, denies weight gain, denies feeling hot, and denies feelings of cold. Eyes: The patient denies glaucoma, denies eye injury/surgery, wears glasses or contacts. Ear/Nose/Throat: The patient denies allergies, denies hayfever, denies ear infections, and denies bloody noses. Cardiovascular: The patient denies chest pain, denies heart disease, NOTES high blood pressure,denies cardiac stent, denies prior heart attack, denies irregular heart beat, NOTES high cholesterol, denies poor circulation, denies heart failure, other cardiac issues, denies claudication, denies cold feet, denies peripheral arterial stent. Respiratory: The patient denies tuberculosis, denies pneumonia, denies frequent cough, denies pulmonary embolism, denies shortness of breath, and denies coughing up blood. Gastrointestinal: The patient denies difficulty swallowing, denies acid reflux, denies ulcers, denies vomiting, denies jaundice/hepatitis, denies gallbladder problems, denies black or tarry stools, denies hemorrhoids, denies bleeding from rectum, denies diverticulitis, denies constipation, denies diarrhea, denies loss of stool control, and denies hernias. Kidney/Bladder: The patient denies kidney stones, denies urine infections, and denies bloody urine. Skin: The patient denies a history of skin cancer, denies bleeding/changing moles, and denies a history of skin rash. Neurologic: The patient denies a history of epilepsy/convulsions, denies headaches, denies head/spinal injuries, and denies stroke/TIA. Psychiatric: The patient denies psychiatric medications, denies depression, and denies voices, denies substance abuse. Endocrine: The patient denies thyroid disorders, denies diabetes, and denies hormonal problems. Hematologic: The patient denies a history of bruising, denies bleeding, and denies anemia, denies blood clots. Infections: The patient denies a history of measles and mumps, denies rheumatic fever, and denies sexually transmitted diseases. Musculoskeletal: The patient denies back pain/injury, denies back problems, denies sciatica, denies knee/foot trouble, denies arthritis, or denies gout. When was patient's last Mammogram screening? N/A Last Colonoscopy: 08/2017 Rosario Ballard LPN documented in this encounter [facility] 08-29-2022 Miscellaneous Notes Formattin g of this note is different from the original. Pharmacy verified in [facility] Patient has been identified by name and date of : Yes Patient aware RX will be sent to pharmacy. No need to notify patient. Patient phones for refill(s): Requested Prescriptions Pending Prescriptions Disp Refills atorvastatin (LIPITOR) 10 mg tablet 90 tablet 1 Sig: Take 1 tablet by mouth once daily. For cholesterol. Date of last office visit : 11/26/2021 Labs-11/26/21 Date of next office visit : 11/28/2022 Last 2 Encounter Wt Readings: Date: Wt: 11/26/2021 78.8 kg (173 lb 12.8 oz) 11/24/2020 78.9 kg (174 lb 0.6 oz) Not applicable Please advise. Julisa Huerta Pss documented in this encounter [facility] 07-21-2022 Miscellaneous Notes Formattin g of this note might be different from the original. Patient last visit 11/26/21 Follow up appointment scheduled 11/28/22 Deann Gomez Ma documented in this encounter [facility] 2022 Miscellaneous Notes Formattin g of this note might be different from the original. Last office visit: 11/26/21 F/u scheduled: 11/28/22 Fe Maciel Ma documented in this encounter [facility] 11-26-2021 History of Presen t illness Narrative 11/26/2021 Patient presents with: Yearly Exam SUBJECTIVE: This is a 71 year old that is here today for Above Complaints. Since last office visit has been in good health without ER visits or hospitalizations. HTN: Patient is compliant with meds Yes Monitors bp at home: Yes.- occasionally Denies side effects: No. Chest pain: No. Dyspnea: No. Edema: No. Palpitations: No. Syncope: No. Headache: No. Dizziness: No. Tobacco use: still smoking 1 pack cigarettes daily. Want to try chantix again as he was able to stop when he took this before HYPERLIPIDEMIA: Patient is taking medications: Yes. Patient is watching diet: Yes. Patient denies myalgias: Yes. Patient denies gi upset: Yes PAST MEDICAL HISTORY Diagnosis Date Colon polyps Diverticulosis Enlarged prostate Hyperlipidemia Hypertension Personal history of colonic polyps Colon polyps Psoriasis Dr. Watts Snoring Spinal stenosis, other than cervical Torn rotator cuff left, seeing Dr. Morris Unspecified hemorrhoids without mention of complication Hemorrhoids ALLERGIES Patient has no known allergies. MEDICATIONS Current Outpatient Medications Medication Sig atorvastatin (LIPITOR) 10 mg tablet Take 1 tablet by mouth once daily. For cholesterol. amLODIPine-benazepril (LOTREL) 5-20 mg per capsule Take 1 capsule by mouth once daily. metoprolol succinate ER (TOPROL XL) 100 mg Take 1 tablet by mouth once daily. multivitamin (VITAMIN DAILY ORAL) Take 1 tablet by mouth once daily. therapeutic multivitamin-minerals (THERA-M PLUS) 9 mg iron-400 mcg tablet Take 1 tablet by mouth once daily. acetaminophen (TYLENOL) 325 mg tablet Take 650 mg by mouth every 6 hours as needed. coenzyme Q10 (COENZYME Q-10) 100 mg cap capsule Take 1 capsule by mouth twice daily. triamcinolone acetonide (KENALOG) 0.1 % cream Apply 1 application to affected area twice daily. Apply sparingly to area for rash/itching. No current facility-administered medications for this visit. Medications and allergies reviewed by this provider. SOCIAL HISTORY Social History Tobacco Use Smoking status: Every Day Packs/day: 1.00 Years: 30.00 Pack years: 30.00 Types: Cigarettes Smokeless tobacco: Former Substance Use Topics Alcohol use: No Comment: none since 2008 Drug use: No REVIEW OF SYSTEMS All other reviewed and negative other than HPI. OBJECTIVE: BP 124/78 Pulse 72 Resp 16 Ht 170.8 cm (5' 7.24 ) Wt 78.8 kg (173 lb 12.8 oz) SpO2 97% BMI 27.02 kg/m . Vital signs reviewed by this provider. APPEARANCE Well appearing, alert, in no acute distress, well-hydrated, well nourished. EYES conjunctiva and sclera normal. EARS External ears normal, canals clear NECK Supple, no adenopathy; thyroid symmetric, normal size, no bruits HEART RRR with normal S1 and S2, no murmurs, no gallops, no JVD appreciated LUNG clear to auscultation. No wheezes, rhonchi, or rales EXTREMITIES Extremities normal, No deformities, No skin discoloration, and No edema SKIN Skin color, texture, turgor normal, no suspicious rashes or lesions Component Latest Ref Rng & Units 11/23/2021 Protein, Total 6.3 - 8.0 g/dL 6.8 Albumin 3.9 - 4.9 g/dL 4.4 Calcium 8.5 - 10.2 mg/dL 9.5 Bilirubin, Total 0.2 - 1.3 mg/dL 1.2 Alkaline Phosphatase 38 - 113 U/L 84 AST 14 - 40 U/L 23 ALT 10 - 54 U/L 17 Glucose 74 - 99 mg/dL 101 (H) BUN 9 - 24 mg/dL 13 Creatinine 0.73 - 1.22 mg/dL 0.86 Sodium 136 - 144 mmol/L 142 Potassium 3.7 - 5.1 mmol/L 4.0 Chloride 97 - 105 mmol/L 104 CO2 22 - 30 mmol/L 27 Anion Gap 9 - 18 mmol/L 11 eGFR >=60 mL/min/1.73m 93 Cholesterol, Total <200 mg/dL 163 Triglyceride <150 mg/dL 83 HDL Cholesterol >39 mg/dL 52 Non HDL Cholesterol <130 mg/dL 111 Fasting Time hrs 14 VLDL Cholesterol <30 mg/dL 17 TC:HDL Ratio <5.10 3.13 LDL Cholesterol <100 mg/dL 94 LDL:HDL Ratio <2.54 1.81 SHINGRIX VACCINE(2 of 3) due on 07/20/2013 LUNG CANCER SCREENING due on 02/02/2019 ADVANCE DIRECTIVE DISCUSSION Never done COVID-19 VACCINE(4 - Booster for Moderna series) due on 04/13/2021 INFLUENZA(1) due on 08/12/2022 COLORECTAL CANCER SCREENING due on 08/22/2022 ANNUAL PCP TEAM CHRONIC DISEASE VISIT due on 11/26/2022 BP CONTROLLED (<130/80) due on 11/26/2022 DTAP,TDAP,TD(3 - Td or Tdap) due on 09/14/2023 DIABETES SCREEN due on 11/23/2024 LIPID SCREEN due on 11/23/2026 ABDOMINAL AORTIC ANEURYSM SCREENING Completed DEPRESSION ASSESSMENT Completed HEPATITIS C SCREENING Completed PNEUMOCOCCAL: 65+ Completed ASSESSMENT/PLAN: 1. Primary hypertension - ICD9: 401.9, ICD10: I10 (primary diagnosis) - good control - Recommended regular aerobic exercise. - Recommend home blood pressure monitoring, to bring results in on next visit - Goal of BP <140/90 - Recommended no refined sugar, low refined starch, healthy oil intake (olive oil), healthy protein (fish) along the lines of the Mediterranean diet. - follow-up yearly and as needed 2. Encounter for screening for lung cancer - ICD9: V76.0, ICD10: Z12.2 - CONSULT LUNG CANCER SCREENING CLINIC 3. Tobacco use disorder - ICD9: 305.1, ICD10: F17.200 - Cessation encouraged. - Physiologic and physical aspects of tobacco addiction as well as strategies for quitting were discussed. - Counseling was given focusing on the harmful effects of this addiction especially given the patient's medical condition(s) which will be worsened because of the chemicals in tobacco. - Prescription for Chantix given 4. Mixed hyperlipidemia - ICD9: 272.2, ICD10: E78.2 - good control - Continue current medication. - Encouraged following a low fat, low cholesterol diet. - Follow up in 6 months. - Encouraged following a low carbohydrate, healthy oil intake diet. Brionna Porras APRN.HONEY Prescription instructions reviewed with patient as applicable. Patient advised if symptoms do not improve or if symptoms worsen sooner, to contact their primary care physician. Potential red flag symptoms discussed with the patient. Reviewed appropriate action plan to take if red flag symptoms occur. Patient agreeable to treatment plan. I spent a total of 30 minutes on the date of the service which included preparing to see the patient, [id number] patient care, completing clinical documentation, obtaining and/or reviewing separately obtained history, performing a medically appropriate examination, counseling and educating the patient/family/caregiver, and ordering medications, tests, or procedures. documented in this encounter [facility] 11-22-2021 Miscellaneous Notes Formattin g of this note might be different from the original. Patient aware. Ann Pisano LPN I am not sure if those will still be god so I put new order in. Brionna Porras APRN.CNP Patient is requesting labs for his appt on 10/14, was not sure if lab work in there from 2020 was sufficient or all he would need. Please advise, thank you. documented in this encounter [facility] 09-02-2021 Miscellaneous Notes Last Office Visit: 11/24/2020 Future Office Visit: 11/26/2021 Last Medication Refill: atorvastatin 03/05/2021 90 tab 1 refill Lotrel 03/05/2021 90 tab 1 refill Date of Last Labs: 11/24/2020 documented in this encounter [facility] 07-29-2021 Miscellaneous Notes Patient has been identified by name and date of : Yes Last office visit in this department: 11/24/2020 Next visit 11/26/21 RX INSTRUCTIONS: Patient aware RX will be sent to pharmacy. No need to notify patient. Patient phones requesting refills as follows: Pending Prescriptions Disp Refills METOPROLOL SUCCINATE ER 100 MG TABLET,EXTENDED RELEASE 24 HR 90 tablet 1 Sig: Take 1 tablet by mouth once daily. MARCIO: No Please review and advise. Susie Pathak Pss documented in this encounter [facility] documented as of this encounter (statuses as of 07/29/2021) [facility] History of Past illness Narrative* Problem Noted Date Resolved Date Elevated blood pressure (not hypertension) 07/2910/14/2015 Hypertension 01/25/2017 documented as of this encounter (statuses as of 09/02/2021) [facility] History of Past illness Narrative* Problem Noted Date Resolved Date Elevated blood pressure (not hypertension) 07/2910/14/2015 Hypertension 01/25/2017 documented as of this encounter (statuses as of 11/22/2021) [facility] History of Past illness Narrative* Problem Noted Date Resolved Date Elevated blood pressure (not hypertension) 07/2910/14/2015 Hypertension 01/25/2017 documented as of this encounter (statuses as of 11/26/2021) [address]16-2011 History of Past illness Narrative* Problem Noted Date Resolved Date Elevated blood pressure (not hypertension) 07/2910/14/2015 Hypertension 01/25/2017 documented as of this encounter (statuses as of 2022) [facility] History of Past illness Narrative* Problem Noted Date Resolved Date Elevated blood pressure (not hypertension) 07/2910/14/2015 Hypertension 01/25/2017 documented as of this encounter (statuses as of 07/21/2022) [facility] History of Past illness Narrative* Problem Noted Date Diagnosed Date Resolved Date Elevated blood pressure (not hypertension) 07/29/2010 10/14/2015 Hypertension 01/25/2017 documented as of this encounter (statuses as of 08/30/2022) [address]16-2011 History of Past illness Narrative* Problem Noted Date Diagnosed Date Resolved Date Elevated blood pressure (not hypertension) 07/29/2010 10/14/2015 Hypertension 01/25/2017 documented as of this encounter (statuses as of 09/12/2022) [address]16-2011 History of Past illness Narrative* Problem Noted Date Diagnosed Date Resolved Date Elevated blood pressure (not hypertension) 07/29/2010 10/14/2015 Hypertension 01/25/2017 documented as of this encounter (statuses as of 10/10/2022) [facility] History of Past illness Narrative* Problem Noted Date Diagnosed Date Resolved Date Elevated blood pressure (not hypertension) 07/29/2010 10/14/2015 Hypertension 01/25/2017 documented as of this encounter (statuses as of 11/23/2022) [place] [address]-16-2011 History of Past illness Narrative* Problem Noted Date Diagnosed Date Resolved Date Elevated blood pressure (not hypertension) 07/29/2010 10/14/2015 Hypertension 01/25/2017 documented as of this encounter (statuses as of 12/18/2022) [facility] Diagnosis Essential hypertension Unspecified essential hypertension [facility] Diagnosis Mixed hyperlipidemia Essential hypertension Unspecified essential hypertension [facility] Diagnosis Hyperlipidemia, unspecified hyperlipidemia type- Primary Hypertension, unspecified type documented [facility]* Diagnosis Primary hypertension- Primary Unspecified essential hypertension Encounter for screening for lung cancer Tobacco use disorder Mixed hyperlipidemia documented in this encounter [facility] note* Diagnosis Essential hypertension Unspecified essential hypertension documented in this encounter [facility] note* Diagnosis Mixed hyperlipidemia documented in this encounter [facility] note* Diagnosis Encounter for screening for malignant neoplasm of colon- Primary Special screening for malignant neoplasms, colon History of colonic polyps Personal history of colonic polyps Family history of colon cancer Family history of malignant neoplasm of gastrointestinal tract documented in this encounter [facility] note* Diagnosis Sessile serrated polyp of colon- Primary Tubular adenoma Benign neoplasm of unspecified site [facility]* Diagnosis Enlarged prostate- Primary Hypertrophy of prostate without urinary obstruction and other lower urinary tract symptoms (LUTS) Screening for prostate cancer Special screening for malignant neoplasm of prostate Unspecified essential hypertension Hyperlipidemia, unspecified hyperlipidemia type documented in this encounter [facility] note* Diagnosis Encounter for screening for malignant neoplasm of colon- Primary Special screening for malignant neoplasms, colon History of colonic polyps Personal history of colonic polyps Family history of colon cancer Family history of malignant neoplasm of gastrointestinal tract documented in this encounter [facility] for referral (narrative)* Outpatient Procedure (Routine) - Closed Specialty Diagnoses / Procedures Referred By Kathy williamson Referred To Contact [facility] Diagnoses History of colonic polyps Family history of colon cancer Procedures COLONOSCOPY SCREENING COLONOSCOPY FLX DX W/COLLJ SPEC WHEN Juliana Caro PA-C [address] [place] [address] [facility] [address] [place] [address] Referral ID Status Reason Start Date Expiration Date V isits Requested Visits Authorized [id number] Closed Auto-Generate d Referral 09/02/2022 09/03/2023 1 1 [facility] for visit Narrative* Outpatient Procedure (Routine) - Closed Specialty Diagnoses / Procedures Referred By Kathy williamson Referred To Contact [facility] [place] Diagnoses History of colonic polyps Family history of colon cancer Procedures COLONOSCOPY SCREENING COLONOSCOPY FLX DX W/COLLJ SPEC WHEN THAOD Juliana William PA-C [address] [place] [address] [facility] [address] [place] [address] Referral ID Status Reason Start Date Expiration Date V isits Requested Visits Authorized [id number] Closed Auto-Generate d Referral 09/02/2022 09/03/[address] 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 Advance Directive(s) 08/22/2017 6:04 AM Reason for Referral Specialty Diagnoses / Procedures Referred By Kathy williamson Referred To Contact Diagnoses Encounter for screening for lung cancer Procedures CONSULT LUNG CANCER SCREENING CLINIC Brionna Porras APRN.CARDIAC EXERCISE SPECIALIST [address] [place] [address] Referral ID Status Reason Start Date Expiration Date Visits Requested Visits Authorized [id number] Ref Not Required PCP Requested Referral 2 02/24/2022 1 1 Medications Administered Section Inactive Administered Medications - up to 3 most recent administrations Medication Order MAR Action Action Date Dose Rate Site diphenhydrAMINE 12.5-50 mg injection (BENADRYL) 12.5-50 mg, INTRAVENOUS, DIRECTED, Starting on Aleja 09/22/22 at 0900, Until Aleja 09/22/22 at 1259, DOSING DIRECTED BY PHYSICIAN FOR PROCEDURAL SEDATION ONLY, Intraprocedure Given 09/22/2022 8:43 AM EDT 50 mg fentaNYL 50 mcg/mL 25-100 mcg injection (SUBLIMAZE) 25-100 mcg, INTRAVENOUS, DIRECTED, Starting on Aleja 09/22/22 at 0900, Until Aleja 09/22/22 at 1259, DOSING DIRECTED BY PHYSICIAN FOR PROCEDURAL SEDATION ONLY, Intraprocedure Given 09/22/2022 8:41 AM EDT 50 mcg lactated ringers iv infusion 30 mL/hr, INTRAVENOUS, CONTINUOUS, Starting on Aleja 09/22/22 at 0800, Until Aleja 09/22/22 at 0903, Preprocedure New Bag/Syringe/Bottle 09/22/2022 7:45 AM EDT 30 mL/hr 30 mL/hr midazolam 1-5 mg injection (VERSED) 1-5 mg, INTRAVENOUS, DIRECTED, Starting on Aleja 09/22/22 at 0900, Until Aleja 09/22/22 at 1259, DOSING DIRECTED BY PHYSICIAN FOR PROCEDURAL SEDATION ONLY, Intraprocedure Given 09/22/2022 8:45 AM EDT 2 mg Additional Source Comments (unrecognized sect ion and content) No Status Records FoundNo Status Records FoundNo Status Records Found INFORMATION SOURCE (unrecogn ized section and content) DATE CREATED AUTHOR AUTHOR'S ORGANIZ ATION 03/09/2018 [facility] DATE CREATED AUTHOR AUTHOR'S ORGANIZ ATION 12/05/2022 [facility] Source Comments (unrecognize d section and content) In the event this informatio n is protected by the Federal Confidentiality of Alcohol and Drug Abuse Patient Records regulations: The Federal rules restrict any use of the information to criminally investigate or prosecute any alcohol or drug abuse patient.[facility] event this information is protected by the Federal Confidentiality of Alcohol and Drug Abuse Patient Records regulations: The Federal rules restrict any use of the information to criminally investigate or prosecute any alcohol or drug abuse patient.[facility] event this information is protected by the Federal Confidentiality of Alcohol and Drug Abuse Patient Records regulations: The Federal rules restrict any use of the information to criminally investigate or prosecute any alcohol or drug abuse patient.[facility] event this information is protected by the Federal Confidentiality of Alcohol and Drug Abuse Patient Records regulations: The Federal rules restrict any use of the information to criminally investigate or prosecute any alcohol or drug abuse patient.[facility] event this information is protected by the Federal Confidentiality of Alcohol and Drug Abuse Patient Records regulations: The Federal rules restrict any use of the information to criminally investigate or prosecute any alcohol or drug abuse patient.[facility] the event this information is protected by the Federal Confidentiality of Alcohol and Drug Abuse Patient Records regulations: The Federal rules restrict any use of the information to criminally investigate or prosecute any alcohol or drug abuse patient.[facility] event this information is protected by the Federal Confidentiality of Alcohol and Drug Abuse Patient Records regulations: The Federal rules restrict any use of the information to criminally investigate or prosecute any alcohol or drug abuse patient.[facility] the event this information is protected by the Federal Confidentiality of Alcohol and Drug Abuse Patient Records regulations: The Federal rules restrict any use of the information to criminally investigate or prosecute any alcohol or drug abuse patient.[facility] event this information is protected by the Federal Confidentiality of Alcohol and Drug Abuse Patient Records regulations: The Federal rules restrict any use of the information to criminally investigate or prosecute any alcohol or drug abuse patient.[facility] event this information is protected by the Federal Confidentiality of Alcohol and Drug Abuse Patient Records regulations: The Federal rules restrict any use of the information to criminally investigate or prosecute any alcohol or drug abuse patient.[facility] the event this information is protected by the Federal Confidentiality of Alcohol and Drug Abuse Patient Records regulations: The Federal rules restrict any use of the information to criminally investigate or prosecute any alcohol or drug abuse patient.[facility] Reason for Visit (unrecogniz ed section and content) Reason Onset Date Comments Refill Request 09/02/2021 Reason Comments Lab Orders Reason Comments Yearly Exam Reason Onset Date Comments Refill Request 2022 Reason Comments Refill Request Reason Onset Date Comments Refill Request 08/29/2022 Reason Comments Consult colonoscopy Reason Comments Follow Up Colonoscopy Reason Comments Orders Care Teams (unrecognized sec tion and content) Plush Finisher Relationship Specialty Start Date End Date Christos Mccrary MD [address] [place], [place] [address] PCP - General Family Practice 10/11/16 Plush Finisher Relationship Specialty Start Date End Date Christos Mccrary MD [address] [place], [place] [id number] PCP - General Family Medicine 10/11/16 Plush Finisher Relationship Specialty Start Date End Date Christos Mccrary MD [address] [place] [address] PCP - General Family Medicine 10/11/16 Plush Finisher Relationship Specialty Start Date End Date Christos Mccrary MD [address] [place] [address] PCP - General Family Medicine 10/11/16 Plush Finisher Relationship Specialty Start Date End Date Christos Mccrary MD [address] [place] [address] PCP - General Family Medicine 10/11/16 Plush Finisher Relationship Specialty Start Date End Date Christos Mccrary MD [address] [place], [place] [id number] PCP - [facility] 10/11/16 Plush Finisher Relationship Specialty Start Date End Date Christos Mccrary MD [address] [place], [place] [id number] PCP - [facility] 10/11/16 Plush Finisher Relationship Specialty Start Date End Date Christos Mccrary MD [address] [facility], [place] [id number] PCP - [facility] 10/11/16 Plush Finisher Relationship Specialty Start Date End Date Christos Mccrary MD [address] [place], [place] [address] PCP - [facility] 10/11/16 FOR RECORDS PERTAINING TO PATIENTS WHO ARE OR HAVE BEEN ENROLLED IN A CHEMICAL DEPENDENCY/SUBSTANCEABUSE PROGRAM, SOME INFORMATION MAY BE OMITTED. This clinical summary was aggregated from multiple sources. Caution should be exercised in using it in the provision of clinical care. This summary normalizes information from multiple sources, and as a consequence, information in this document may materially change the coding, format and clinical context of patient data. In addition, data may be omitted in some cases. CLINICAL DECISIONS SHOULD BE BASED ON THE PRIMARY CLINICAL RECORDS. [facility]. provides no warranty or guarantee of the accuracy or completeness of information in this document.
== END 2023-02-15 22:25 | disposition home or self-care (01) ==
PROVIDERS: Emergency Provider Emergency Medicine; PCP Family Medicine; Visit Provider Emergency Medicine
DX: S61.412A Laceration without foreign body of left hand, initial encounter (principal); W26.8XXA Contact with other sharp object(s), not elsewhere classified, initial encounter; Z23 Encounter for immunization; I10 Essential (primary) hypertension; E78.00 Pure hypercholesterolemia, unspecified; F17.210 Nicotine dependence, cigarettes, uncomplicated
CPT/HCPCS: 12002; 90471; 90715; 99283

== ENCOUNTER → 2023-10-06 | Outpatient (CLI) | payer MEDICARE, OTHER, SELFPAY ==
--- NOTE | 2023-10-06 08:14 | CT_ITS ---
CT BILATERAL LOWER EXTREMITIES WITH 3-D IMAGING CLINICAL INDICATION: STRESS FX LEFT FEMUR TECHNIQUE: Axial CT images of the bilateral lower extremities (including pelvis, bilateral hips, and bilateral knees) was performed without IV contrast material. Coronal and sagittal reformats were provided. The protocol utilizes one or more of the following dose reduction techniques: automated exposure control, adjustment of mA and/or kV according to patient size, and/or use of iterative reconstruction technique. RADIATION DOSAGE (If Supplied By Facility): CTDIvol = ( 13.54 ) mGy, DLP = ( 761.59 ) mGycm COMPARISON: No relevant prior comparison study available. FINDINGS: Bones: There is degenerative arthrosis of the hip joints bilaterally, left worse than right. There are old healed fractures of the right superior and inferior pubic rami. There is pubic symphysis arthrosis. There is mild degenerative arthrosis of the medial femorotibial compartments of the bilateral knees. Osseous structures are normal without evidence of fracture or dislocation. No lytic or blastic osseous masses. There is fusion hardware in the visualized lower lumbar spine. Soft Tissues: There are dense calcifications in the prostate gland. There are tiny knee joint effusions bilaterally. The deep soft tissue structures are unremarkable. The superficial soft tissues are unremarkable without evidence of edema, hematoma, or foreign body. CT/Extremity Lower without Contra IMPRESSION: Degenerative arthrosis of the hip joints bilaterally, left worse than right. Old healed fractures of the right superior and inferior pubic rami. No left femur fracture demonstrated. Electronically Signed: Dung Locke MD at 9:06 EDT ,
== END | disposition home or self-care (01) ==
LOC: CT 08:13
PROVIDERS: PCP Family Medicine; Referring Provider Student in an Organized Health Care Education/Training Program; Visit Provider Student in an Organized Health Care Education/Training Program
DX: M84.352D Stress fracture, left femur, subsequent encounter for fracture with routine healing (principal); M16.12 Unilateral primary osteoarthritis, left hip
CPT/HCPCS: 73700

== ENCOUNTER 2023-10-23 12:33 | Observation (INO) | payer MEDICARE, OTHER, SELFPAY ==
[2023-09-28 10:42] LABS: Absolute Lymphocyte Count 1.21 X10^3/uL (0.83-4.51); Absolute Neutrophil Count 3.7 X10^3/uL (2.0-7.7); Basophil# 0.03 X10^3/uL; Basophil% 0.5 % (0-1); Eosinophil# 0.09 X10^3/uL; Eosinophils% 1.6 % (0-5); Hematocrit 39.5 % (40-54); Hemoglobin 13.1 g/dL (13.0-16.5); Lymphocyte # 1.21 X10^3/ul (0.83-4.51); Lymphocyte % 21.6 % (19-41); Mean Corp Hgb Conc 33.2 g/dL (32-36); Mean Corpuscular Hgb 32.2 pg (27.0-32.0); Mean Corpuscular Volume 97.1 fL (80-94); Mean Platelet Vol. 11.8 fl (6.2-12.0); Monocyte# 0.53 X10^3/uL; Monocyte% 9.4 % (0-10); NRBC Flagged by Analyzer 0 % (0-5); Neutrophil # 3.73 X10^3/uL (2.7-7.7); Neutrophil % 66.5 % (47-70); Platelet Count 189 K/mm3 (150-450); RBC Distribution Width CV 12.6 % (11.6-14.6); RBC Distribution Width SD 44.9 fl (35.1-43.9); Red Blood Count 4.07 M/mm3 (4.6-6.2); White Blood Count 5.6 K/mm3 (4.4-11.0)
[2023-09-28 11:18] LABS: Albumin, Serum 3.3 g/dL (3.2-5.0); Anion Gap 5 (5-15); BUN 12 mg/dL (7-18); BUN/Creat Ratio 14.3 RATIO (10-20); Calcium,Total 9.1 mg/dL (8.5-10.1); Chloride 106 mmol/L (98-107); Creatinine, Serum 0.84 mg/dL (0.70-1.30); EST Glomerular Filtration Rate 96 mL/min (>60); Est Glom Filt Rate - Afr Amer 116 mL/min (>60); Glucose 105 mg/dL (74-106); Sodium Level 140 mmol/L (136-145)
[2023-09-28 11:28] LABS: Magnesium 2.1 mg/dL (1.6-2.6)
[2023-09-28 14:17] LABS: Hemoglobin A1c 5.6 % (3.8-5.6)
[2023-10-23] VITALS (17 sets, daily range): BP systolic 97–132; BP diastolic 42–94; PULSE 55–70; RESP 14–18; TEMP 36.1–36.6; O2SAT 4–100; BMI 26.8
[2023-10-23] MEDS: Lactated Ringers 1,000 ML 999 ML IV ×2 (08:35→12:15)
[2023-10-23] MEDS: Magnesium 1 GM over 15 mins IV (08:35)
[2023-10-23] MEDS: Celecoxib 200 MG Capsule 400 MG PO (08:36)
[2023-10-23] MEDS: Acetaminophen 500 MG Tablet 1000 MG PO ×3 (08:36→23:00)
[2023-10-23] MEDS: Gabapentin 600 MG Tablet PO (08:36)
--- NOTE | 2023-10-23 08:41 | PCM.PRE.AN2 ---
ASA Classification* ASA Classification ASA Classification: 2 Assessment & Plan Anesthesia* Anesthesia Assessment Anesthesia Assessment: Discussed sedation and/or anesthesia options, risks, benefits, and alternatives with patient/parents/legal guardian/POA. Questions invited. The patient/parents/legal guardian/POA seems to understand and agrees to proceed with anesthesia plan. Reviewed the physical assessment, medical history, allergy history and patient home medications list prior to surgery/procedure/anesthetic and documented any changes. Performed airway and anesthesia risk assessments. Anesthesia Type Anesthesia Type: Spinal Anesthesia Focused Assessment* Airway Assessment Mouth opens: >3 cm Mallampati Score: II Focused Labs Anesthesia Preop lab: CBC WBC 5.6 K/mm3 (4.4-11.0) 09/28/23 09:43 RBC 4.07 M/mm3 (4.6-6.2) L 09/28/23 09:43 Hgb 13.1 g/dL (13.0-16.5) 09/28/23 09:43 Hct 39.5 % (40-54) L 09/28/23 09:43 Plt Count 189 K/mm3 (150-450) 09/28/23 09:43 CHEMISTRY Potassium 4.0 mmol/L (3.5-5.1) 09/28/23 09:43 Sodium 140 mmol/L (136-145) 09/28/23 09:43 Magnesium 2.1 mg/dL (1.6-2.6) 09/28/23 09:43 BUN 12 mg/dL (7-18) 09/28/23 09:43 Creatinine 0.84 mg/dL (0.70-1.30) 09/28/23 09:43 Glucose 105 mg/dL (74-106) 09/28/23 09:43 COAG Pre-Assessment Diagnosis/Proposed Procedure Planned Operative Procedure(s): (L) robotic assisted left total hip arthroplasty Anesthesia History 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 When Was Last Pacemaker Check QUESTION #4 FULL TEXT: You/Your Family Experience fever (hyperthermia) with Anesthesia Last Oral Intake Last Oral intake: Last Oral Intake NPO since Meds taken in AM with sips of water? Meds patient instructed to take am of surgery PONV PONV - ceramic designer: PONV - ceramic designer Female No 09/27/23 09:59 HX of Motion Sickness No 09/27/23 09:59 HX of N/V After Surgery No 09/27/23 09:59 Non-Smoker No 09/27/23 09:59 Duration of Surgery greater Yes 09/27/23 09:59 than 60 minutes Number of Risk Factors 1 09/27/23 09:59 PONV Score Low Risk 09/27/23 09:59 Height & Weight Height & Weight: Anesthesia: Height & Weight Height 5 ft 9 in 10/20/23 08:17 Weight: 83.007 kg 10/20/23 08:17 Respiratory Assessment Respiratory Assessment - ceramic designer: Respiratory Tract Infection Hx - ceramic designer Hx Respiratory Tract Infection No 09/27/23 09:59 STOP Sleep Apnea STOP Sleep Apnea - ceramic designer: STOP Sleep Apnea - ceramic designer Hx Hypertension Yes: controlled with med 09/27/23 09:59 Hx Sleep Apnea No 09/27/23 09:59 CPAP BIPAP Do you snore loudly (louder Yes 09/27/23 09:59 than talking or can be heard Do you often feel tired/ No 09/27/23 09:59 fatigued/ sleepy during daytime? Has anyone observed you stop No 09/27/23 09:59 breathing during sleep? STOP Results Positive 09/27/23 09:59 QUESTION #5 FULL TEXT : Do you snore loudly (louder than talking or can be heard through closed doors)? Tobacco Use History Tobacco Use History - ceramic designer: Tobacco Use History - ceramic designer Tobacco Use Smoking Status Current every day smoker 09/27/23 09:59 Hx Tobacco Use Yes 09/27/23 09:59 Years Smoking Packs Smoked per Day 0.5 09/27/23 09:59 Smoking Cessation Date was within the last 15 years Hx Smoking Cessation Date Hx Smoking Cessation Counseling Hematologic Medial History Hematologic Hx - ceramic designer: Hematologic Medical Hx - [employer] Hx of Blood Transfusion No 09/27/23 09:59 Hx of Transfusion in last 3 No 09/27/23 09:59 Months Date of Last Transfusion (if within last 3 months) Ever experience any problems No 09/27/23 09:59 with transfusion(s)? Specify any problems Hx of Preganancy in last 3 N/A 09/27/23 09:59 Months Nurse Filling Out Transfusion NBUCHER 09/27/23 09:59 & Questions: Date: 09/27/23 09/27/23 09:59 Time: 10:01 09/27/23 09:59 Patient unable to answer at this time (ie. confused, unrespo /Reproduction History /Reproductive History - ceramic designer: /Reproductive Hx- ceramic designer Hx Now No 09/27/23 09:59 Gestational Age (in weeks): EDC: Hx Hx Para Hx Section SAB No 09/27/23 09:59 Active Medications Active Medications: Current Medications Generic Name Dose Route Start Last Admin Trade Name Renetta PRN Reason Stop Dose Admin Acetaminophen 1,000 mg 10/23/23 10:15 10/23/23 08:36 Acetaminophen 500 Mg Tablet PO 10/23/23 10:16 1,000 mg X1 ONE Administration Celecoxib 400 mg 10/23/23 10:15 10/23/23 08:36 Celecoxib 200 Mg Capsule PO 10/23/23 10:16 400 mg X1 ONE Administration Sodium Chloride 77.4 ml/ 0 ml 10/23/23 10:15 Ropivacaine 200 mg/ OPERA.SITE 10/23/23 10:16 Epinephrine HCl 0.6 mg/ X1 ONE Ketorolac Tromethamine 30 mg/ Morphine Sulfate 5 mg Dexamethasone Sodium Phosphate 10 mg 10/23/23 10:15 Dexamethasone 10 Mg/Ml Vial IV 10/23/23 10:16 X1 ONE Gabapentin 600 mg 10/23/23 10:15 10/23/23 08:36 Gabapentin 600 Mg Tablet PO 10/23/23 10:16 600 mg X1 ONE Administration Lactated Ringer's 1,000 mls @ 999 mls/hr 10/23/23 10:15 10/23/23 08:35 IV 10/23/23 11:15 999 mls/hr .Q1H1M EVARISTO Administration Cefazolin Sodium 2 gm/ Sodium 110 mls @ 150 mls/hr 10/23/23 10:15 Chloride IV 10/23/23 10:58 PREOP ONE Tranexamic Acid 1,000 mg/ 110 mls @ 660 mls/hr 10/23/23 10:15 Sodium Chloride IV 10/23/23 10:24 X1 ONE Tranexamic Acid 1,000 mg/ 110 mls @ 660 mls/hr 10/23/23 10:15 Sodium Chloride IV 10/23/23 10:24 X1 ONE Lactated Ringer's 1,000 mls @ 999 mls/hr 10/23/23 10:15 IV 10/23/23 11:15 .Q1H1M EVARISTO Lactated Ringer's 1,000 mls @ 125 mls/hr 10/23/23 10:15 IV 10/23/23 18:14 .Q8H EVARISTO Lactated Ringer's 1,000 mls @ 75 mls/hr 10/23/23 10:15 IV 10/23/23 23:34 .[id number] EVARISTO Magnesium Sulfate 1 gm/ 102 mls @ 408 mls/hr 10/23/23 10:15 10/23/23 08:35 Dextrose IV 10/23/23 10:29 408 mls/hr X1 ONE Administration Insulin Human Lispro 1 - 6 unit 10/23/23 10:15 Insulin Lispro 100 Unit/Ml Insuln.Pen SC 10/23/23 18:00 Q4H PRN PRN BG>/= 180, SEE PROTOCOL Protocol Sodium Chloride 5 - 15 ml 10/23/23 10:15 0.9% Nacl Peripheral Flush Adult/Peds IV UD PRN SALINE FLUSH PFSH Medical History (Updated 09/27/23 @ 10:21 by Nadja Garcia) History of fracture of right ankle History of pelvic fracture Injury of back Back pain Wears hearing aid Loss of hearing Wears dentures Wears glasses Rash History of kidney stones Rheumatoid arthritis Arthritis High cholesterol Psoriasis Smoker History of stress test Hypercholesteremia HTN (hypertension) Home Medications ?Medication ?Instructions ?Recorded ?Last Taken ?Type acetaminophen 500 mg tablet 1,000 mg PO DAILY PRN pain 09/27/23 10/19/23 History (Acetaminophen Extra Strength) amlodipine 5 mg-benazepril 20 mg 1 cap PO DAILY 09/27/23 10/23/23 06:00 History capsule atorvastatin 40 mg tablet 40 mg PO DAILY cholesterol 09/27/23 10/22/23 History cholecalciferol (vitamin D3) 25 25 mcg PO DAILY 09/27/23 10/22/23 History mcg (1,000 unit) capsule (Vitamin D3) glucosamine 500 2 cap PO BID 09/27/23 10/22/23 History wq-dnxvcdxzh-zijujyrh comp 400 mg-D3 667 unit-C-Mn cap (Vbykzxqtcws-Nzokeiabygq-R3(C-manganese)) metoprolol succinate 100 mg 100 mg PO DAILY 09/27/23 10/23/23 08:00 History tablet,extended release 24 hr multivitamin (Daily Multi-Vitamin 1 tab PO DAILY 09/27/23 Unknown History tablet) saw palmetto 160 1 cap PO DAILY 09/27/23 10/22/23 History bl-Thxheo-hyjhatihz-beta ycqgszmiep-K7-rmcf capsule (Prostate CLAUDIA) turmeric 400 mg capsule 400 mg PO DAILY 09/27/23 10/22/23 History Allergy/AdvReac Type Severity Reaction Status Date / Time No Known Allergies Allergy Verified 10/23/23 08:33 Surgical History (Updated 09/27/23 @ 10:21 by Nadja Garcia) History of back surgery (~2015) History of arthroscopy of left shoulder (~2016) History of arthroscopy of right shoulder (~2009) History of toe surgery (~2007) History of hernia repair Social History (Updated 02/15/23 @ 21:[address] Selvin Kaur MD) household members: spouse Smoking Status: Current every day smoker tobacco type: cigarettes Review of Systems (Anesthesia) ROS Narrative System reviewed and no additional complaints, except as documented.
[2023-10-23 09:14] LABS: Bedside Glucose 101 mg/dL (74-106)
[2023-10-23] MEDS: Lactated Ringers 1,000 ML 75 ML IV (09:35)
[2023-10-23] MEDS: Cefazolin 2 GM in 0.9% Normal Saline (100mL Bag) 100 ML IV (10:08)
--- NOTE | 2023-10-23 10:15 | HIP_PTH ---
PATIENT: PEREZ ESCALERA LOC: MS3 U#:[id number] AGE/SX: 73/M ROOM: [facility] [place] RE10/23/[address]: Dr. David Mancuso DO : 1950 BED: 1 DIS: 10/24/2023 SPEC #: [id number] RECD: 10/23/23 12:27 STATUS: RICKY WENMia #: [id number] PRO: 10/23/23 10:[address]: David Mancuso DEPT: SURGICAL PATHOLOGY RECD BY: Gina Bergeron ENTERED: 10/23/23 13:19 SP TYPE: TOTAL HIP OTHR DR: Dr. Ad Mccrary MD Tissues: Hip, NOS Procedures: Decalcification bone/plaque Surgery Specimen Level IV HEADER OPERATION: Robotic assisted total hip arthroplasty PRE-OP DIAGNOSIS: Osteoarthritis left hip TISSUE SUBMITTED: Left hip bone and tissue MICROSCOPIC DIAGNOSIS Bone and tissue of left hip, total hip resection: Degenerative joint disease. AM: 10/26/2023 MICROSCOPIC DESCRIPTION Slides are reviewed. GROSS DESCRIPTION Received is one container labeled with the patient's name and designated bone and soft tissue left hip. The specimen consists of a cole femoral head (with portion of femoral neck). The femoral head measures 4.5 x 5.0 x 4.5 cm (and the femoral neck measures 1.2 cm in length.) The articular surface displays prominent osteophyte formation, and bone erosion. Also present in the specimen container are multiple irregular fragments of bone reamings measuring in aggregate 9.0 x 8.0 x 2.5 cm. Also present at the top of the femoral head is a piece of soft tissue measuring 2.5 x 0.5 x 0.2cm. Glass Mechanic sections are submitted in three cassettes as follows: 1 - soft tissue at the top of femoral head, 2&3 - bone after decalcification. / JUAN/ 10/23/2023 TC:5 CPT: 62322, 57200
[2023-10-23] MEDS: dexAMETHasone 10 MG/ML Vial IV (10:20)
[2023-10-23] MEDS: TXA 1000mg in NS100 100ml (IVPB at Incision) 660 MG IV (10:20)
[2023-10-23] MEDS: JPS (Morphine 10mg/ml) OPERA.SITE (11:16)
[2023-10-23] MEDS: TXA 1000mg in NS100 100ml (IVPB at Closure) 660 MG IV (11:48)
--- NOTE | 2023-10-23 12:39 | PCM.POST.ANE ---
Anesthesia: Postop Eval I Current Vital Signs Temperature: 97.6 F Pulse Rate: 64 Blood Pressure: 118/84 Respiratory Rate: 14 Pulse Ox: 100 Oxygen Delivery Method: Nasal Cannula Oxygen Flow Rate (L/min): 2 Assessment Airway patent: Yes Spontaneous unlabored respirations: Yes Mental status: Awake and Calm nausea: No Vomiting: No Anesthesia Complication: No Fluid Hydration Crystalloid volume administer (ml): 1,200 Total IV fluid infused: 1,200 Progress Note Anesthesia document: Postop Eval 1 completed: Yes
--- NOTE | 2023-10-23 12:45 | RAD_ITS ---
INDICATION: Post Op -- AP both hips on single opal/lateral of op hip PACU EXAMINATION/TECHNIQUE: X-RAY - XR Hip Unilateral with Pelvis when performed; 2-3 Views COMPARISON: No relevant prior comparison study available FINDINGS: PELVIC BONES: Fusion of the lower lumbar spine with pedicle screws partially visualized on this exam. Note that overlapping bowel shadows may however obscure fine detail. Sacroiliac joints are unremarkable. Old fracture of the right inferior pubic ramus. HIPS: Total left hip arthroplasty. Unremarkable alignment as seen on these views. SOFT TISSUES: Gas in the the soft tissues consistent with recent surgery. RAD/Hip Min 2 Views (Portable) IMPRESSION: Status post total left hip arthroplasty. Electronically Signed: Migel Davis MD at 14:47 EDT ,
[2023-10-23] MEDS: Lactated Ringers 1,000 ML 125 ML IV (13:05)
--- NOTE | 2023-10-23 13:10 | POSTOPAN2_ITS ---
Anesthesia Postop Eval I Sum Postop Eval Completion status Anesthesia document: Postop Eval 1 completed: Yes Anesthesia Postop Eval I Summary Anesthesia Postop Eval I Summary: Anesthesia Postop Eval I: Assessment Summary Airway patent Yes 10/23/23 12:39 EDUCATION [email or web address] Spontaneous unlabored Yes 10/23/23 12:39 EDUCATION [email or web address] respirations Mental status Awake,Calm 10/23/23 12:39 EDUCATION [email or web address] nausea No 10/23/23 12:39 EDUCATION [email or web address] Vomiting No 10/23/23 12:39 EDUCATION [email or web address] Anesthesia Postop Eval I: Fluid Summary Crystalloid volume administer 1,200 10/23/23 12:39 EDUCATION [email or web address] (ml) Colloids volume administered ( ml) Blood Product volume administered (ml) Total IV fluid infused 1,200 10/23/23 12:39 EDUCATION [email or web address] Anesthesia Postop Eval I: Summary Notes Anesthesia Complication No 10/23/23 12:39 [email or web address] Anesthesia Complication Comment: Post-operative progress note Anesthesia: Postop Eval II Evaluation Mental status: Awake Pain Level: 0 nausea: No Vomiting: No
--- NOTE | 2023-10-23 13:10 | PCM.POSTANE2 ---
Anesthesia Postop Eval I Sum Postop Eval Completion status Anesthesia document: Postop Eval 1 completed: Yes Anesthesia Postop Eval I Summary Anesthesia Postop Eval I Summary: Anesthesia Postop Eval I: Assessment Summary Airway patent Yes 10/23/23 12:39 [email or web address] Spontaneous unlabored Yes 10/23/23 12:39 [email or web address] respirations Mental status Awake,Calm 10/23/23 12:39 [email or web address] nausea No 10/23/23 12:39 [email or web address] Vomiting No 10/23/23 12:39 [email or web address] Anesthesia Postop Eval I: Fluid Summary Crystalloid volume administer 1,200 10/23/23 12:39 [email or web address] (ml) Colloids volume administered ( ml) Blood Product volume administered (ml) Total IV fluid infused 1,200 10/23/23 12:39 [email or web address] Anesthesia Postop Eval I: Summary Notes Anesthesia Complication No 10/23/23 12:39 [email or web address] Anesthesia Complication Comment: Post-operative progress note Anesthesia: Postop Eval II Evaluation Mental status: Awake Pain Level: 0 nausea: No Vomiting: No
--- NOTE | 2023-10-23 15:33 | OP.PCM_ITS ---
Report of Operation Date of Procedure: 10/23/23 Description of Surgical Findings:: Preoperative diagnosis: Left hip primary osteoarthritis Postoperative diagnosis: Left hip primary osteoarthritis Procedure: Robotic assisted left total hip arthroplasty Surgeon: David Mancuso DO Tube Test Technician: Marjan Rader PA-C Anesthesia: General endotracheal Blocker And Sewer: Shreyas Rivera CRNA Complications: None apparent Drains: None Estimated blood loss: 150 cc Urinary output: none recorded IV fluids: 1200 cc crystalloid Specimens: Femoral head Surgical implants: Spencer insignia size #5 high offset, Biolox delta ceramic V 40 femoral head 36 mm outer diameter + 2 .5 mm neck length, Spencer Trident X3 10 degree polyethylene insert, Trident 2 TriTanium cluster hole acetabular shell 54 mm diameter Indications: This is an 73-year-old male seen in the outpatient setting for left hip pain. X-rays revealed left hip osteoarthritis. MRI was obtained demonstrated subchondral fracture of the femoral head as well as femoral acetabular impingement changes. He failed oral nwlf-kds-qkhhnbt analgesics including NSAIDs and Tylenol, activity modification. I recommended surgical intervention the form of left total hip arthroplasty. I reviewed the procedure with the patient, its risks, benefits, alternatives. Risks included but were not limited to bleeding, infection, loss of life or limb, risk of anesthesia, neurovascular injury, persistent pain, instability, need for additional surgery, failure of orthopedic hardware, loosening, osteolysis, need for assistive devices long-term, leg length discrepancy. Patient expressed understanding wish to proceed with surgery. Description of procedure: I greeted the patient in same-day surgery holding area the day of surgery. He was identified by name, medical record number, and date of . All questions were answered to patient satisfaction. The operative extremity was marked with a surgical marker. Informed consent was confirmed with the patient. Patient underwent spinal anesthetic in the PACU prior to the procedure. At time of his procedure, patient brought the operative suite and positioned supine initially on a standard operating table. Gentle MAC anesthesia was administered. Patient was then positioned in a lateral decubitus position with the left side up. An axillary roll was placed under the patient's left axilla. The right fibular head was free. We then prepped and draped the left lower extremity in normal, sterile orthopedic fashion. Prior to the procedure, the Aayush plan was reviewed and appeared appropriate based on the patient's CT scan and anatomy. We performed a timeout with all parties in attendance in agreement with the side, site, and operation to be performed. No concerns were voiced and would like to proceed. 1 g TXA IV as well as 2 g Ancef was administered prior to the incision by anesthesia staff. 1 g TXA IV was administered at time of closure additionally. I first elected to place our pelvic array with a curvilinear incision over the iliac crest just posterior to the ASIS. I bluntly dissected down the level of the periosteum. I then drilled 3 intracortical pins with excellent cortical purchase. Pelvic array was then assembled and positioned appropriately. I then turned my attention to the hip. A standard posterior lateral incision was made curvilinear over the posterior lateral hip, centered on the tip of the greater trochanter. Full-thickness skin incision was made, approximately 12 cm in length. I sharply dissected down the level of the fascia juno. Fascia juno was then incised in line with the incision. I bluntly dissected through the raphae of the gluteus dixie. Femoral checkpoint was placed at this point. We then registered her femoral anatomy prior to dislocating the hip. I then internally rotated the hip. Limited gluteal bursectomy was performed to identify the short external rotators. A Cobra retractor was placed in his gluteus medius. Short external rotators were taken down with Bovie cautery and tagged for later repair with #2 Ethibond suture. This identified the underlying capsule. A hockey- stick shaped capsulotomy was made over the femoral neck carried posteriorly to the acetabular labrum. Labrum was released and the hip was dislocated. I then marked a standard femoral neck cut 1 fingerbreadth above the lesser trochanter. Sagittal saw was used to carefully cut the femoral neck. Femoral head was removed and examined and appeared benign. It was sent to pathology per hospital policy. I then turned my attention to the acetabulum. Cobra retractors were placed anterior and posteriorly. Self-retaining retractor was placed superiorly. Acetabular labrum was excised with a long handled knife. Acetabular pulmonary was excised with Bovie cautery. Hemostasis was excellent at this point. I then registered the acetabulum with the Koofers robot successfully. I then brought in the Aayush robot with the acetabular reaming arm to a size 54. This was reamed and the planned position to the planned depth. Reamer was then removed. There was excellent bleeding bone at the base and excellent remaining anterior posterior garcia of the acetabulum. 54 mm acetabular component was selected for and attached to the radio sales account executive arm of the robot. I placed the acetabular component near planned position before attaching to the robot. The robot then held the cuff in position while I impacted it to an appropriate depth. The acetabular cup was then removed from the robotic arm. It had excellent rim fit. I then selected a 10 degree posterior lipped liner and impacted this per multiple spindle screw machine operator recommendations. I then turned my attention to the femur. Box chisel was then utilized to gain access to the femoral canal. Canal finder was placed. Sequential broaches were used and press-fit manner. A final size 5 achieved excellent vertical and rotational stability. We then trialed with a high offset hip stem templated. Calcar planer was used to prep the calcar for the collared implant.. A +0 and +2.5 mm neck length were trialed. The +2. 5 mm neck achieved greater stability and reproduction of leg lengths. Trials were then removed. We copiously irrigated the wound with normal saline solution, Betadine solution, and irrisept solution. A size 5 stem was then impacted with excellent fixation. Final head was then impacted over clean, dry Kaye taper neck. Final reduction was performed. A posterior capsular repair was performed with #2 Ethibond suture and bone tunnels, as well as the short external rotator repair. Femoral checkpoint was removed. Pelvic array pins were removed. IT band was closed watertight with #1 strata fix suture. Deeper fascial layers were closed with 0 Vicryl suture in interrupted fashion. Subcutaneous layers were reapproximated with 2-0 Vicryl suture and skin reapproximated with running subcuticular 3?0 strata fix and skin glue. Pelvic array incision was closed with buried 2-0 Vicryl suture and skin glue.. A silver dressing was applied. Patient tolerated procedure well without co mplication. He was positioned back in the supine position on his hospital bed. He was transferred to PACU in stable condition. A pillow was placed between the patient's leg to be present while he is in bed. Need for skilled assistant tennis professional: Marjan Rader PA-C was critical to the outcome of the case. During the course of the procedure the physician assistant tennis professional played a vital role. Her intimate knowledge of my steps in the procedure aided in safe and expedient completion of the procedure. The PA played a vital role in positioning particularly in obtaining the appropriate positioning. The PA was a lso vital in the retraction of soft tissues during the exposure and projecting vital structures. The PA was also vital and protecting soft tissues during times of bony cuts. She also played a vital role in closure with my direct supervision. The PA was also important during reduction and dislocation of the joint and trials intraoperatively. Post Operative Plan: Patient will be placed in observation overnight given his multiple comorbidities and advanced age. Plan for discharge to home likely tomorrow. Weightbearing: Weightbearing as tolerated left lower extremity, posterior hip precautions. Pillows between legs while in bed Antibiotics: Ancef 1 g every 8 hours x 3 doses DVT Prophylaxis: Aspirin 81 mg twice daily to start tomorrow Amor: None Dressing: Maintain silver dressing x 5 days X-Rays: PACU x-rays were reviewed demonstrated well-positioned left total hip arthroplasty implant. Follow-up 2-week x-rays in the office. Follow-up: 2 weeks in my office as scheduled
[2023-10-23] MEDS: Cefazolin 1 GM/50 ML BAG IV ×2 (17:19→23:00)
[2023-10-23] MEDS: Aspirin 81 MG TAB.CHEW PO (17:20)
[2023-10-23] MEDS: Senna/Docusate Sodium 1 Tablet 2 TABLET PO (23:00)
[2023-10-24] VITALS (7 sets, daily range): BP systolic 111–129; BP diastolic 64–87; PULSE 61–95; RESP 16–20; TEMP 36.4–36.8; O2SAT 95–99
[2023-10-24] MEDS: Acetaminophen 500 MG Tablet 1000 MG PO ×2 (06:00→13:06)
[2023-10-24 07:22] LABS: Hematocrit 30.9 % (40-54); Hemoglobin 10.3 g/dL (13.0-16.5); Mean Corp Hgb Conc 33.3 g/dL (32-36); Mean Corpuscular Hgb 32.4 pg (27.0-32.0); Mean Corpuscular Volume 97.2 fL (80-94); Mean Platelet Vol. 11.7 fl (6.2-12.0); Platelet Count 126 K/mm3 (150-450); RBC Distribution Width CV 12.7 % (11.6-14.6); RBC Distribution Width SD 45.2 fl (35.1-43.9); Red Blood Count 3.18 M/mm3 (4.6-6.2); White Blood Count 11.6 K/mm3 (4.4-11.0)
[2023-10-24 08:16] LABS: Anion Gap 4 (5-15); BUN 15 mg/dL (7-18); BUN/Creat Ratio 19.8 RATIO (10-20); Calcium,Total 8.6 mg/dL (8.5-10.1); Chloride 108 mmol/L (98-107); Creatinine, Serum 0.76 mg/dL (0.70-1.30); EST Glomerular Filtration Rate 108 mL/min (>60); Est Glom Filt Rate - Afr Amer 130 mL/min (>60); Estimated Creatinine Clearance 83.47 ml/min; Glucose 107 mg/dL (74-106); Potassium 4.3 mmol/L (3.5-5.1); Sodium Level 140 mmol/L (136-145)
[2023-10-24] MEDS: Aspirin 81 MG TAB.CHEW PO (08:24)
[2023-10-24] MEDS: amLODIPine 5 MG Tablet PO (09:23)
[2023-10-24] MEDS: Atorvastatin Calcium 40 MG Tablet PO (09:23)
[2023-10-24] MEDS: Senna/Docusate Sodium 1 Tablet 2 TABLET PO (09:24)
[2023-10-24] MEDS: Metoprolol(XL)Succ 100 MG Tablet PO (09:25)
[2023-10-24] MEDS: Lisinopril 20 MG Tablet PO (09:25)
--- NOTE | 2023-10-24 11:47 | PN.ORTHO_ITS ---
Subjective Subjective Patient is s/p left total hip arthroplasty with Dr. Mancuso 10/23/2023. Patient resting comfortably in bedside chair. Rates pain 4/ 10 at rest. With movement 4/10. States taking Tylenol and oxycodone and ice help to relieve pain. Patient has been up with therapy. Walking with the assit of a walker. Afebrile, no chest pain, shortness of breath, negative calf pain/ erythema, and no other signs of DVT. Objective Data Objective Data Vital Signs: Vital Signs Temp Pulse Resp BP Pulse Ox O2 Del Method O2 Flow Rate 97.6 F L 77 16 129/87 H 98 Room Air 4 10/24/23 09:11 10/24/23 09:25 10/24/23 09:11 10/24/23 09:11 10/24/23 09:11 10/24/23 09:11 10/23/23 13:50 Oxygen Flow Rate (L/min) 4 Oxygen Delivery Method Room Air Weight: 82.282 kg Body Mass Index (BMI) 26.8 Intake & Output: Intake and Output for Last 24 Hours 10/22/23 10/23/23 10/24/23 23:59 23:59 23:59 Intake Total 3782 / 3782 1050 / 1050 Output Total 1000 / 1000 800 / 800 Balance 2782 / 2782 250 / 250 Lab / Micro Data 10/24/23 07:11 10/24/23 07:11 Labs: Laboratory Results - last 24 hr 10/24/23 07:11: WBC 11.6 H, RBC 3.18 L, Hgb 10.3 L, Hct 30.9 L, MCV 97.2 H, MCH 32.4 H, MCHC 33.3, RDW Std Deviation 45.2 H, RDW Coeff of Jillian 12.7, Plt Count 126 L, MPV 11.7, Sodium 140, Potassium 4.3, Chloride 108 H, Carbon Dioxide 28.0, Anion Gap 4 L, BUN 15, Creatinine 0.76, Estim Creat Clear Calc 83.47, Est GFR (MDRD) Af Amer 130, Est GFR (MDRD) Non-Af 108, BUN/Creatinine Ratio 19.8, G lucose 107 H, Calcium 8.6 Micro: Microbiology 09/28/23 09:43 Swab (Method) Nasal Screen MRSA/MSSA - Final Radiography Diagnostic Testing: Radiology Impression Hip X-Ray 10/23/23 12:45 IMPRESSION: Status post total left hip arthroplasty. Electronically Signed: Migel Davis MD at 14:47 EDT , Physical Exam Narrative Patient resting comfortably in bedside chair No signs of acute distress Satting well on room air Limb is warm to touch, Sensation intact throughout entire lower extremity, including saphenous, sural, superficial and deep peroneal, and tibial distribution. DP/PT pulses bounding. dorsi/plantar flexion strength 5/5 Dressing clean , dry, intact Calf nontender to palpation, no erythema, no edema. Negative Homans Assessment & Plan Assessment/Plan (1) S/P total hip arthroplasty: PLAN: Plan 1. Will continue PT today. WBAT 2. plan for discharge this afternoon following PT 3. Patient will follow up for post op appointment as previously scheduled in 2 weeks 4. Patient has outpatient PT appointment as previously scheduled 5. WBC 11.6 acute reactive leukocytosis: secondary to pre operative decadron. no acute systemic signs of infection. will monitor, and likely self resolve. 6. H/H 10.3/30.9: post operavtive anemia secondary to acute blood loss intraoperatively. Patient is asymptomatic at this time. No intraoperative complications. will continue to monitor. no acute interventions. 7. DVT prophylaxis : ASA81 BID x 4 weeks 8. Pain control: patient instructed to take tylenol 500mg 2 tablets TID. and oxycodone 1-2 tablets every 4-6 hours only as needed for pain control. 9. Patient also given a prescription of meloxicam for pain control, pepcid for ulcer prophylaxis, and senna 10. ok to remove post op dressing. post op day 5
--- NOTE | 2023-10-24 11:54 | DCINST_ITS ---
Discharge Instructions Diet Discharge Diet: No restrictions Activity Discharge Activity: Return to Normal Activity and Use Walker Weight Bearing Status: Weight bearing as tolerated Dressing / Incision Call your doctor if your incision/area has: Continuous Slow Oozing, Sudden Increased Bleeding, Increased Pain/ Swelling, Increased Redness, Foul Smelling Discharge and Swelling at the incision site Call your doctor if you observe: Fever of 101 or Higher, Inability to have a bowel movement, Shortness of breath, Dizziness, Chest pain and Calf discomfort Remove Dressing in: 5 days Cleanse incision/area with: Soap & Water and Keep Dressing Clean & Dry Follow Up Care When: With with orthopedics as previously scheduled 2 weeks postoperatively. Test Results: Test results from this visit will be discussed in further detail at your follow- up appointment, if applicable. Discharge Plan Admission Admit Date/Time: 10/23/23 12:33 Attending Provider: David Mancuso Primary Care Provider: Ad Mccrary Discharge Orders/Prescriptions Prescriptions: New acetaminophen 500 mg Tablet 1,000 mg PO Q8 Qty: 180 0RF aspirin 81 mg Tablet,Chewable 81 mg PO BIDCM 28 Days Qty: 56 0RF meloxicam 7.5 mg Tablet 7.5 mg PO BID Qty: 60 0RF oxycodone 5 mg Tablet 5 - 10 mg PO .q4-6hrs prn PRN (Reason: Pain Score 4-10) 7 Days Qty: 60 0RF sennosides-docusate sodium [Stimulant Laxative Plus] 8.6-50 mg Tablet 2 tab PO BID Qty: 14 0RF Continued atorvastatin 40 mg tablet 40 mg PO DAILY metoprolol succinate 100 mg tablet extended release 24 hr 100 mg PO DAILY amlodipine-benazepril 5-20 mg capsule 1 cap PO DAILY multivitamin [Daily Multi-Vitamin] Tablet 1 tab PO DAILY cholecalciferol (vitamin D3) [Vitamin D3] 25 mcg (1,000 unit) capsule 25 mcg PO DAILY turmeric 400 mg capsule 400 mg PO DAILY Prostate CLAUDIA [id number] mg capsule 1 cap PO DAILY Durkufdnikk-Hbjxnj-K9 (C-betito) 500-400-667 mg-mg-unit capsule 2 cap PO BID Held acetaminophen [Acetaminophen Extra Strength] 500 mg tablet 1,000 mg PO DAILY PRN (Reason: pain) Hold Instructions: Resume on 10/10/24. Other Ambulatory Orders: 12 Lead EKG (Routine) Timeframe: [id number] Location: None Selected Ordered By: Dr. David Mancuso Referrals / Follow Up: Ad Mccrary MD [Primary Care Provider] - Disposition Disposition (needs filled in before D/C Order can be placed): Home, Self Care
--- NOTE | 2023-10-24 12:30 | CASEMGMT ---
STEPHEN NOWAK Assessment: Face to Face with pt for initial transition planning/care coordination assessment. STEPHEN NOWAK introduced self and role at [facility], pt voices understanding and consents to assessment. Pt is A&O x4 and answers all questions appropriately at this time. Pt sitting up in chair, dressed with at bedside. Pt agreeable to assessment with present. Care providers, pharmacy, and demographics verified/updated. Admitting Dx: L INDY Strata Score: 1 PCP:Hermann Specialists:angel Mancuso Preferred Pharmacy: [facility] Retail, pt did not think he showed rx cards to hospital. TC to pharmacy, they did have rx info and cost of meds is $21.26. Insurance:[facility], [facility] Supp Prescription Benefit: yes LNOK: Genesis Amaro, Living Arrangements: Pt lives with in a two story home with 1 step to enter. Pt has bed on main level. Pt reports he is I in ADLs and denies concerns at home. Transportation: Pt drives self and denies concerns with transportation. Pt will transport pt until he can drive again. DME:walk in shower, FWW, BSC, shower chair HHC/SNF: Denies hx of Pt states no concerns with going home at time of dc. Pt has outpt therapy set up to start tomorrow at [facility]. Pt states no further concerns/needs. CM to follow. Advised pt to ask CM if any further question/concerns/needs arise, voices understanding. Pt Goal: Home with outpt therapy Plan: Home with outpt therapy Prema MITCHELL CM
== END 2023-10-24 13:25 | disposition home or self-care (01) ==
LOC: SDC 12:40 → MS3 12:40
PROVIDERS: Anesthesiology; Admitting Provider Student in an Organized Health Care Education/Training Program; PCP Family Medicine; Referring Provider Student in an Organized Health Care Education/Training Program; Visit Provider Student in an Organized Health Care Education/Training Program
PROC: 8E0Y0CZ Robotic Assisted Procedure of Lower Extremity, Open Approach (ICD-10-PCS; CPT 27130; principal; 2023-10-23 09:45)
DX: M16.12 Unilateral primary osteoarthritis, left hip (principal); M06.9 Rheumatoid arthritis, unspecified; E78.00 Pure hypercholesterolemia, unspecified; I10 Essential (primary) hypertension; Z79.899 Other long term (current) drug therapy; Z87.891 Personal history of nicotine dependence
CPT/HCPCS: 27130; S2900; 01214; 36415; 73502; 80048; 82040; 82962; 83036; 83735; 85025; 85027; 87081; 88305; 88311; 93005; 94668; 94762; 96361; 96365; 96366; 97110; 97162; 97166; 97530; 97535; 99221; C1776; J7120; G0378; J2405; J3475